=== PATIENT | male | born 1960 | race Caucasian/White ===

== ENCOUNTER → 2016-05-12 | Outpatient (CLI) | payer OTHER ==
[~2016-05-12] MED LIST: CELE-19 PO; COUM2.5T11 PO; LYRI75CA PO; MILKSUS PO; PERC10TA17 PO; SENO8.6T10 PO; SIMV20TA2 PO; TRIA37.53 PO; TYLE167L PO
== END ==
LOC: M RAD 13:55
PROVIDERS: ATTEND Physician Assistant
DX: M75.41 Impingement syndrome of right shoulder (principal); M75.42 Impingement syndrome of left shoulder; Z53.9 Procedure and treatment not carried out, unspecified reason

== ENCOUNTER → 2016-05-18 | Outpatient (CLI) | payer OTHER ==
--- NOTE | 2016-05-18 15:46 | REP ---
MRI study of the left shoulder without contrast: History: Left shoulder impingement. Technique: Axial, oblique coronal, and oblique sagittal imaging planes utilized for T1 and T2-weighted scans obtained in the usual fashion with and without fat saturation. MRI left shoulder findings: There is a small left glenohumeral joint effusion. Glenohumeral and acromioclavicular joints are normally aligned. There is AC joint osteoarthritic hypertrophy superiorly and inferiorly. There is diffuse tendonitis tendinosis change in the distal supraspinatus tendon. There is some focal increased signal intensity on oblique coronal T2-weighted scans near its distal insertion consistent with a partial thickness distal supraspinatus tear. There is mild early spur formation at the inferior aspect of the humeral head. There is no visible superior, anterior or posterior labral tear. No articular cartilage defect is seen. The biceps tendon is in the bony bicipital groove and appears intact. Infraspinatus and subscapularis tendons appear intact. Impression: Supraspinatus tendonitis tendinosis change with partial thickness distal supraspinatus tendon tear. Small glenohumeral joint effusion. Early osteoarthritic spurring of the humeral head. Moderate AC joint osteoarthritic hypertrophy. Signed by Rene Cain MD 05/18/2016 05:40 P
--- NOTE | 2016-05-18 15:49 | REP ---
MRI right shoulder without contrast: History: Right shoulder impingement pain. No comparison radiographs. Technique: Axial, oblique coronal, and oblique sagittal imaging planes are utilized for T1 and T2-weighted scans obtained in the usual fashion with and without fat saturation. MRI findings: The glenohumeral and acromioclavicular joints are normally aligned. There is moderate osteoarthritic hypertrophy at the superior and inferior aspect of the AC joint. There is a small to moderate right glenohumeral articulation effusion. No loose body is seen. No anterior or posterior labral tear is seen. No definite SLAP lesion is seen. There is fairly advanced diffuse tendonitis tendinosis change with swelling and increased signal intensity throughout the supraspinatus tendon on oblique coronal T1-weighted scans. There is focal T2-weighted signal intensity at the distal insertion of the tendon consistent with a partial thickness distal supraspinatus cuff tear on T2-weighted scans. No retraction is seen. The infraspinatus, subscapularis, and biceps tendons are intact. Exam is otherwise unremarkable. Impression: Supraspinatus tendonitis tendinosis change. Distal supraspinatus tendon focal T2 hyperintensity at its insertion consistent with partial thickness tear. Joint effusion in the glenohumeral articulation. Signed by Rene Cain MD 05/18/2016 05:41 P
== END ==
LOC: M RAD 12:50
PROVIDERS: ATTEND Physician Assistant
DX: M75.41 Impingement syndrome of right shoulder (principal); M75.42 Impingement syndrome of left shoulder

== ENCOUNTER 2016-06-05 23:12 | Emergency (ER) | payer OTHER ==
[2016-06-06 00:57] LABS: MEAN CORPUSCULAR HEMOGLOBIN 27.2 pg (27.0-33.0); MEAN CORPUSCULAR HGB CONC 33.6 g/dl (32.0-36.5); PLATELET COUNT, AUTOMATED 338 k/mm3 (150-450); RED CELL DISTRIBUTION WIDTH 14.5 % (11.5-14.5); WHITE BLOOD COUNT 12.5 K/mm3 (4.0-10.0)
[2016-06-06 01:52] LABS: ANISOCYTOSIS 1+; ERYTHROCYTE SEDIMENTATION RATE 6 mm/hr (0-20)
[2016-06-06] MEDS ORDERED: CLINDAMYCIN 150 MG CAP As Ordered ONE (01:53)
--- NOTE | 2016-06-06 02:07 | EDDOCDS ---
Physician Documentation [facility] Name: Ubaldo Ascencio Age: 56 yrs Sex: Male : 1960 Arrival Date: 06/05/2016 Time: 23:12 Bed I5 / M5 Private MD: Raj Mckenna Abdul Disposition: 06/06/16 01:48 Discharged to Home/Self Care. Impression: Cellulitis of right upper limb - vs localized allergic reaction to shoulder injection, right shoulder. - Condition is Stable. - Discharge Instructions: Cellulitis. - Prescriptions for Clindamycin HCl 300 mg Oral Capsule - take 1 capsule by ORAL route every 6 hours; 40 capsule. Prednisone 20 mg Oral Tablet - take 3 tablet by ORAL route once daily for 5 days; 15 tablet. - Medication Reconciliation, Local Pharmacy Hours form. - Follow up: Emergency Department; When: As needed; Reason: Worsening of conditions. Follow up: Private Physician; When: 2 - 3 days; Reason: Wound/Symptom Recheck, Recheck today's complaints, Continuance of care. - Problem is new. - Symptoms are unchanged. - Notes: TAKE ALL THE MEDICATION PRESCRIBED TO YOU TODAY DIRECTED UNTIL IT IS GONE. TAKE THE PREDNISONE EARLIER IN THE DAY, WITH FOOD. IF YOU TAKE THIS BEFORE BED, YOU MAY NOT SLEEP WELL. FOLLOW UP WITH THE ORTHO GROUP THAT PERFORMED THIS INJECTION. PLEASE RETURN TO THE ER WITH ANY WORSENING SYMPTOMS. Historical: - Allergies: no known allergies; - Home Meds: 1. simvastatin 20 mg Oral tab 1 tab once daily (Last dose: 06/05/2016 22:00) 2. gabapentin 100 mg Oral tab three times a day (Last dose: 06/05/2016 15:45) 3. Triamterene-Hydrochlorothiazid Oral Unknown once daily - PMHx: Hypercholesterolemia; Hypertension; Chronic Back pain; - PSHx: Colonoscopy; right hip replacement; right heel surgery; 2 hernia repairs; - Social history: Smoking status: Patient states was never smoker of tobacco. No barriers to communication noted, The patient speaks fluent Romanian. - Family history: Not pertinent. - : The pt / caregiver states he / she is not on anticoagulants. Home medication list is obtained from the patient. - Exposure Risk Screening:: None identified. Vital Signs: 06/05 23:15 BP 169 / 87 RA Sitting (auto/lg); Pulse 66; Resp 16; Temp 96.6(O); Pulse Ox 96% on R/A; rs6 Weight 133.81 kg / 295 lbs (R); Height 5 ft. 11 in. (180.34 cm) (R); Pain 3/10; 02/ 02:04 BP 158 / 83; Pulse 69; Resp 20; Temp 97.3(T); Pulse Ox 95% on R/A; Pain 0/10; rw1 02 23:15 Body Mass Index 41.14 (133.81 kg, 180.34 cm) rs6 02:04 states "pain is a zero as long as i'm not moving that shoulder" rw1 MDM: 00:13 CBC with Diff Ordered. EDMS 00:13 Sed Rate Ordered. EDMS 00:13 CRP Ordered. EDMS 00:59 DIFFERENTIAL NO CHARGE Ordered. EDMS 01:43 Financial registration complete. [facility] 01:48 Clindamycin 300 mg PO once ordered. dt4 Administered Medications: 02:03 Drug: Clindamycin 300 mg [clindamycin 150 mg capsule (2 caps)] Route: PO; rw1 02:03 Follow up: Response: Pt left department before re-evaluation is appropriate rw1 Signatures: Dispatcher [employer] Alma Rosa Kebede, Lawson Flores RN, mcp, LPN SOFTWARE CLERK rw1 Angelica Davis,ALEJANDRO RN ld5 Camelia Feliz, PAYoung PA-C dt4 Yessica Maldonado [facility] MTDD
--- NOTE | 2016-06-06 02:07 | EDDOCDS ---
Nurse's Notes [facility] Name: Ubaldo Ascencio Age: 56 yrs Sex: Male : 1960 Arrival Date: 06/05/2016 Time: 23:12 Bed I5 / M5 Private MD: Raj Mckenna Abdul Diagnosis: Cellulitis of right upper limb-vs localized allergic reaction to shoulder injection, right shoulder Presentation: 06/05 23:17 Presenting complaint: Patient states: had injection in right shoulder. Last mcp night shoulder started throbbing--took long time to fall asleep. Tonight shoulder felt hot, felt chills. Adult Sepsis Screening: The patient does not have new or worsening altered mentation. Patient's respiratory rate is less than 22. Systolic blood pressure is greater than 100. Patient has a qSOFA score of 0- Negative Sepsis Screen. Suicide/Homicide risk assessment- the patient denies having any suicidal and/or homicidal ideations and does not present with any other emotional, behavioral or mental health complaints. Status: Patient is not a service team leader or dependent. Transition of care: patient was not received from another setting of care. 23:17 Acuity: CAREY Level 4 [facility] 23:17 Method Of Arrival: Walkin/Carried/Asstd [facility] Triage Assessment: 23:22 General: Appears uncomfortable, Behavior is cooperative. Pain: Location: right shoulder mcp Pain currently is 2 out of 10 on a pain scale. At worst was 5 out of 10 on a pain scale. HIV screening NA for this visit Offered previously. Neurological: No deficits noted. Respiratory: Airway is patent Respiratory effort is even, unlabored. Derm: Skin is pink, warm & dry. Musculoskeletal: Circulation, motion, and sensation intact Range of motion limited in right shoulder. Historical: - Allergies: no known allergies; - Home Meds: 1. simvastatin 20 mg Oral tab 1 tab once daily (Last dose: 06/05/2016 22:00) 2. gabapentin 100 mg Oral tab three times a day (Last dose: 06/05/2016 15:45) 3. Triamterene-Hydrochlorothiazid Oral Unknown once daily - PMHx: Hypercholesterolemia; Hypertension; Chronic Back pain; - PSHx: Colonoscopy; right hip replacement; right heel surgery; 2 hernia repairs; - Social history: Smoking status: Patient states was never smoker of tobacco. No barriers to communication noted, The patient speaks fluent Polish. - Family history: Not pertinent. - : The pt / caregiver states he / she is not on anticoagulants. Home medication list is obtained from the patient. - Exposure Risk Screening:: None identified. Screenin 00:53 Screening information is obtained from the patient. Fall risk: No risks identified. ld5 Assistance ADL's: requires no assistance with activities of daily living. Abuse/DV Screen: The patient / caregiver reports he/she is: not in a situation that causes fear, pain or injury. Nutritional screening: No deficits noted. Advance Directives: There is no active DNR order. home support is adequate. Assessment: 00:53 General: Appears in no apparent distress. Pain: Pain currently is 2 out of 10 on a pain ld5 scale. Neurological: Level of Consciousness is awake, alert. Respiratory: Airway is patent Respiratory effort is even, unlabored. Musculoskeletal: Reports pain in right shoulder. 02:04 Reassessment: Patient appears in no apparent distress at this time. Patient denies pain rw1 at this time. Patient states feeling better. Vital Signs: 06/05 23:15 BP 169 / 87 RA Sitting (auto/lg); Pulse 66; Resp 16; Temp 96.6(O); Pulse Ox 96% on R/A; rs6 Weight 133.81 kg (R); Height 5 ft. 11 in. (180.34 cm) (R); Pain 3/10; /04 02:04 BP 158 / 83; Pulse 69; Resp 20; Temp 97.3(T); Pulse Ox 95% on R/A; Pain 0/10; rw1 /03 23:15 Body Mass Index 41.14 (133.81 kg, 180.34 cm) rs6 02:04 states "pain is a zero as long as i'm not moving that shoulder" rw1 Vitals: 06/05 23:15 Log In Time: June 05, 2016 at 23:15. rs6 ED Course: 23:14 Patient visited by Salena Crespo PCA. rs6 23:14 Raj Mckenna is Private Physician. rs6 23:14 Patient moved to Waiting rs6 23:16 Patient visited by Salena Crespo PCA. rs6 23:16 Patient moved to Pre RCE rs6 23:18 Triage Initiated mcp 23:23 Patient visited by Alma Rosa Conteh, ALEJANDRO. mcp 23:47 Patient moved to Triage 1 cz 0204 00:03 Camelia Feliz PA-C is [facility]. dt4 00:03 Marcio Blanco DO is Attending Physician. dt4 00:03 Patient visited by Camelia Feliz PA-C. dt4 00:12 Patient moved to I5 / cz 00:19 CRP Sent. cz 00:19 Sed Rate Sent. cz 00:19 CBC with Diff Sent. cz 00:52 Patient visited by Angelica Davis RN. ld5 00:53 The patient / caregiver is instructed regarding the plan of care and ED course. Patient ld5 has correct armband on for positive identification. 00:53 No IV's were initiated during this patient's visit. No procedures done that require ld5 assistance. 01:17 DIFFERENTIAL NO CHARGE Sent. ld5 Administered Medications: 02:03 Drug: Clindamycin 300 mg [clindamycin 150 mg capsule (2 caps)] Route: PO; rw1 02:03 Follow up: Response: Pt left department before re-evaluation is appropriate rw1 Order Results: Lab Order: CBC with Diff; SPEC'M 06/06/16 00:14 Test: WHITE BLOOD COUNT; Value: 12.5; Range: 4.0-10.0; Abnormal: Above high normal; Units: K/mm3; Status: F Test: RED BLOOD COUNT; Value: 5.60; Range: 4.30-6.10; Units: M/mm3; Status: F Test: HEMOGLOBIN; Value: 15.2; Range: 14.0-18.0; Units: g/dl; Status: F Test: HEMATOCRIT; Value: 45.3; Range: 42.0-52.0; Units: %; Status: F Test: MEAN CORPUSCULAR VOLUME; Value: 81.0; Range: 80.0-96.0; Units: fl; Status: F Test: MEAN CORPUSCULAR HEMOGLOBIN; Value: 27.2; Range: 27.0-33.0; Units: pg; Status: F Test: MEAN CORPUSCULAR HGB CONC; Value: 33.6; Range: 32.0-36.5; Units: g/dl; Status: F Test: RED CELL DISTRIBUTION WIDTH; Value: 14.5; Range: 11.5-14.5; Units: %; Status: F Test: PLATELET COUNT, AUTOMATED; Value: 338; Range: 150-450; Units: k/mm3; Status: F Test: NEUTROPHILS; Value: 80; Range: 35-75; Abnormal: Above high normal; Units: %; Status: F Test: LYMPHOCYTES; Value: 14; Range: 16-52; Abnormal: Below low normal; Units: %; Status: F Test: MONOCYTES; Value: 5; Range: 0-8; Units: %; Status: F Test: ATYPICAL LYMPH; Value: 1; Range: 0-5; Units: %; Status: F Test: ANISOCYTOSIS; Value: 1+; Status: F Lab Order: Sed Rate; SPEC'06/06/16 00:14 Test: ERYTHROCYTE SEDIMENTATION RATE; Value: 6; Range: 0-20; Units: mm/hr; Status: F Lab Order: CRP; SPEC'06/06/16 00:14 Test: C REACTIVE PROTEIN QUANTITATIV; Value: 0.83; Range: 0.00-0.30; Abnormal: Above high normal; Units: MG/DL; Status: F Lab Order: PLATELET ESTIMATE; SPEC'06/06/16 00:14 Test: PLATELET ESTIMATE; Value: NORMAL; Range: NORMAL; Status: F Outcome: 01:48 Discharge ordered by Provider. dt4 02:04 Discharge Assessment: Patient awake, alert and oriented x 3. No cognitive and/or rw1 functional deficits noted. Patient verbalized understanding of disposition instructions. patient administered narcotics - no. The following High Risk Discharge criteria are identified: None. Discharged to home ambulatory. Condition: stable Condition: improved. Discharge instructions given to patient, Instructed on discharge instructions, follow up and referral plans. medication usage, Demonstrated understanding of instructions, medications, Pt was receptive of discharge instructions/ teaching. Prescriptions given X 2. No special radiology studies were completed. Property sent home with patient. 02:06 Patient left the ED. rw1 Signatures: Alma Rosa Conteh RN Paramjit Dobson mcp, RN RN cz Workman, Robert, LPN LPN rw1 Angelica Davis RN RN ld5 Camelia Feliz, PAYoung PA-C dt4 Crespo, Salena, SOCIAL SERVICE WORKER SOCIAL SERVICE WORKER rs6 MTDD
--- NOTE | 2016-06-08 03:08 | EDDOCDS ---
Physician Documentation [facility] Name: Ubaldo Ascencio Age: 56 yrs Sex: Male : 1960 Arrival Date: 06/05/2016 Time: 23:12 Bed I5 / M5 Private MD: Raj Mckenna Abdul Disposition: 06/06/16 01:48 Discharged to Home/Self Care. Impression: Cellulitis of right upper limb - vs localized allergic reaction to shoulder injection, right shoulder. - Condition is Stable. - Discharge Instructions: Cellulitis. - Prescriptions for Clindamycin HCl 300 mg Oral Capsule - take 1 capsule by ORAL route every 6 hours; 40 capsule. Prednisone 20 mg Oral Tablet - take 3 tablet by ORAL route once daily for 5 days; 15 tablet. - Medication Reconciliation, Local Pharmacy Hours form. - Follow up: Emergency Department; When: As needed; Reason: Worsening of conditions. Follow up: Private Physician; When: 2 - 3 days; Reason: Wound/Symptom Recheck, Recheck today's complaints, Continuance of care. - Problem is new. - Symptoms are unchanged. - Notes: TAKE ALL THE MEDICATION PRESCRIBED TO YOU TODAY DIRECTED UNTIL IT IS GONE. TAKE THE PREDNISONE EARLIER IN THE DAY, WITH FOOD. IF YOU TAKE THIS BEFORE BED, YOU MAY NOT SLEEP WELL. FOLLOW UP WITH THE ORTHO GROUP THAT PERFORMED THIS INJECTION. PLEASE RETURN TO THE ER WITH ANY WORSENING SYMPTOMS. Historical: - Allergies: no known allergies; - Home Meds: 1. simvastatin 20 mg Oral tab 1 tab once daily (Last dose: 06/05/2016 22:00) 2. gabapentin 100 mg Oral tab three times a day (Last dose: 06/05/2016 15:45) 3. Triamterene-Hydrochlorothiazid Oral Unknown once daily - PMHx: Hypercholesterolemia; Hypertension; Chronic Back pain; - PSHx: Colonoscopy; right hip replacement; right heel surgery; 2 hernia repairs; - Social history: Smoking status: Patient states was never smoker of tobacco. No barriers to communication noted, The patient speaks fluent [place]ib[place]ian. - Family history: Not pertinent. - : The pt / caregiver states he / she is not on anticoagulants. Home medication list is obtained from the patient. - Exposure Risk Screening:: None identified. Vital Signs: 06/05 23:15 BP 169 / 87 RA Sitting (auto/lg); Pulse 66; Resp 16; Temp 96.6(O); Pulse Ox 96% on R/A; rs6 Weight 133.81 kg / 295 lbs (R); Height 5 ft. 11 in. (180.34 cm) (R); Pain 3/10; 02/04 02:04 BP 158 / 83; Pulse 69; Resp 20; Temp 97.3(T); Pulse Ox 95% on R/A; Pain 0/10; rw1 02 23:15 Body Mass Index 41.14 (133.81 kg, 180.34 cm) rs6 02:04 states "pain is a zero as long as i'm not moving that shoulder" rw1 MDM: 00:13 CBC with Diff Ordered. EDMS 00:13 Sed Rate Ordered. EDMS 00:13 CRP Ordered. EDMS 00:59 DIFFERENTIAL NO CHARGE Ordered. EDMS 01:43 Financial registration complete. [facility] 01:48 Clindamycin 300 mg PO once ordered. dt4 18:30 T-Sheet-- Draft Copy was scanned into [employer] and attached to record. klr Administered Medications: 02:03 Drug: Clindamycin 300 mg [clindamycin 150 mg capsule (2 caps)] Route: PO; rw1 02:03 Follow up: Response: Pt left department before re-evaluation is appropriate rw1 Signatures: Dispatcher [employer] Alma Rosa Kebede, RN RN Lawson Cartagena LPN TYPEWRITER OPERATOR AUTOMATIC rw1 Angelica DavisRN RN ld5 Camelia Feliz PA-C PA-C dt4 Yessica Maldonado [facility] Maryann Martin henry The chart was reviewed and I authenticate all verbal orders and agree with the evaluation and treatment provided.Attachments: 18:30 T-Sheet-- Draft Copy klr Chart Complete MTDD
--- NOTE | 2016-06-08 03:08 | EDDOCDS ---
Physician Documentation [facility] Name: Ubaldo Ascencio Age: 56 yrs Sex: Male : 1960 Arrival Date: 06/05/2016 Time: 23:12 Bed I5 / M5 Private MD: Raj Mckenna Abdul Disposition: 06/06/16 01:48 Discharged to Home/Self Care. Impression: Cellulitis of right upper limb - vs localized allergic reaction to shoulder injection, right shoulder. - Condition is Stable. - Discharge Instructions: Cellulitis. - Prescriptions for Clindamycin HCl 300 mg Oral Capsule - take 1 capsule by ORAL route every 6 hours; 40 capsule. Prednisone 20 mg Oral Tablet - take 3 tablet by ORAL route once daily for 5 days; 15 tablet. - Medication Reconciliation, Local Pharmacy Hours form. - Follow up: Emergency Department; When: As needed; Reason: Worsening of conditions. Follow up: Private Physician; When: 2 - 3 days; Reason: Wound/Symptom Recheck, Recheck today's complaints, Continuance of care. - Problem is new. - Symptoms are unchanged. - Notes: TAKE ALL THE MEDICATION PRESCRIBED TO YOU TODAY DIRECTED UNTIL IT IS GONE. TAKE THE PREDNISONE EARLIER IN THE DAY, WITH FOOD. IF YOU TAKE THIS BEFORE BED, YOU MAY NOT SLEEP WELL. FOLLOW UP WITH THE ORTHO GROUP THAT PERFORMED THIS INJECTION. PLEASE RETURN TO THE ER WITH ANY WORSENING SYMPTOMS. Historical: - Allergies: no known allergies; - Home Meds: 1. simvastatin 20 mg Oral tab 1 tab once daily (Last dose: 06/05/2016 22:00) 2. gabapentin 100 mg Oral tab three times a day (Last dose: 06/05/2016 15:45) 3. Triamterene-Hydrochlorothiazid Oral Unknown once daily - PMHx: Hypercholesterolemia; Hypertension; Chronic Back pain; - PSHx: Colonoscopy; right hip replacement; right heel surgery; 2 hernia repairs; - Social history: Smoking status: Patient states was never smoker of tobacco. No barriers to communication noted, The patient speaks fluent [place]. - Family history: Not pertinent. - : The pt / caregiver states he / she is not on anticoagulants. Home medication list is obtained from the patient. - Exposure Risk Screening:: None identified. Vital Signs: 06/05 23:15 BP 169 / 87 RA Sitting (auto/lg); Pulse 66; Resp 16; Temp 96.6(O); Pulse Ox 96% on R/A; rs6 Weight 133.81 kg / 295 lbs (R); Height 5 ft. 11 in. (180.34 cm) (R); Pain 3/10; 02/04 02:04 BP 158 / 83; Pulse 69; Resp 20; Temp 97.3(T); Pulse Ox 95% on R/A; Pain 0/10; rw1 02 23:15 Body Mass Index 41.14 (133.81 kg, 180.34 cm) rs6 02:04 states "pain is a zero as long as i'm not moving that shoulder" rw1 MDM: 00:13 CBC with Diff Ordered. EDMS 00:13 Sed Rate Ordered. EDMS 00:13 CRP Ordered. EDMS 00:59 DIFFERENTIAL NO CHARGE Ordered. EDMS 01:43 Financial registration complete. [facility] 01:48 Clindamycin 300 mg PO once ordered. dt4 18:30 T-Sheet-- Draft Copy was scanned into [employer] and attached to record. klr Administered Medications: 02:03 Drug: Clindamycin 300 mg [clindamycin 150 mg capsule (2 caps)] Route: PO; rw1 02:03 Follow up: Response: Pt left department before re-evaluation is appropriate rw1 Signatures: Dispatcher [employer] Alma Rosa Kebede, RN RN Lawson Cartagena LPN BRIDAL SALES CONSULTANT rw1 Angelica DavisRN RN ld5 Camelia Feliz PA-C PA-C dt4 Yessica Maldonado [facility] Maryann Martin henry The chart was reviewed and I authenticate all verbal orders and agree with the evaluation and treatment provided.Attachments: 18:30 T-Sheet-- Draft Copy klr Chart Complete MTDD
--- NOTE | 2016-06-08 03:08 | EDDOCDS ---
Nurse's Notes [facility] Name: Ubaldo Ascencio Age: 56 yrs Sex: Male : 1960 Arrival Date: 06/05/2016 Time: 23:12 Bed I5 / M5 Private MD: Raj Mckenna Abdul Diagnosis: Cellulitis of right upper limb-vs localized allergic reaction to shoulder injection, right shoulder Presentation: 06/05 23:17 Presenting complaint: Patient states: had injection in right shoulder. Last mcp night shoulder started throbbing--took long time to fall asleep. Tonight shoulder felt hot, felt chills. Adult Sepsis Screening: The patient does not have new or worsening altered mentation. Patient's respiratory rate is less than 22. Systolic blood pressure is greater than 100. Patient has a qSOFA score of 0- Negative Sepsis Screen. Suicide/Homicide risk assessment- the patient denies having any suicidal and/or homicidal ideations and does not present with any other emotional, behavioral or mental health complaints. Status: Patient is not a patient services technician or dependent. Transition of care: patient was not received from another setting of care. 23:17 Acuity: CAREY Level 4 [facility] 23:17 Method Of Arrival: Walkin/Carried/Asstd [facility] Triage Assessment: 23:22 General: Appears uncomfortable, Behavior is cooperative. Pain: Location: right shoulder mcp Pain currently is 2 out of 10 on a pain scale. At worst was 5 out of 10 on a pain scale. HIV screening NA for this visit Offered previously. Neurological: No deficits noted. Respiratory: Airway is patent Respiratory effort is even, unlabored. Derm: Skin is pink, warm & dry. Musculoskeletal: Circulation, motion, and sensation intact Range of motion limited in right shoulder. Historical: - Allergies: no known allergies; - Home Meds: 1. simvastatin 20 mg Oral tab 1 tab once daily (Last dose: 06/05/2016 22:00) 2. gabapentin 100 mg Oral tab three times a day (Last dose: 06/05/2016 15:45) 3. Triamterene-Hydrochlorothiazid Oral Unknown once daily - PMHx: Hypercholesterolemia; Hypertension; Chronic Back pain; - PSHx: Colonoscopy; right hip replacement; right heel surgery; 2 hernia repairs; - Social history: Smoking status: Patient states was never smoker of tobacco. No barriers to communication noted, The patient speaks fluent Wolof. - Family history: Not pertinent. - : The pt / caregiver states he / she is not on anticoagulants. Home medication list is obtained from the patient. - Exposure Risk Screening:: None identified. Screenin 00:53 Screening information is obtained from the patient. Fall risk: No risks identified. ld5 Assistance ADL's: requires no assistance with activities of daily living. Abuse/DV Screen: The patient / caregiver reports he/she is: not in a situation that causes fear, pain or injury. Nutritional screening: No deficits noted. Advance Directives: There is no active DNR order. home support is adequate. Assessment: 00:53 General: Appears in no apparent distress. Pain: Pain currently is 2 out of 10 on a pain ld5 scale. Neurological: Level of Consciousness is awake, alert. Respiratory: Airway is patent Respiratory effort is even, unlabored. Musculoskeletal: Reports pain in right shoulder. 02:04 Reassessment: Patient appears in no apparent distress at this time. Patient denies pain rw1 at this time. Patient states feeling better. Vital Signs: 06/05 23:15 BP 169 / 87 RA Sitting (auto/lg); Pulse 66; Resp 16; Temp 96.6(O); Pulse Ox 96% on R/A; rs6 Weight 133.81 kg (R); Height 5 ft. 11 in. (180.34 cm) (R); Pain 3/10; /04 02:04 BP 158 / 83; Pulse 69; Resp 20; Temp 97.3(T); Pulse Ox 95% on R/A; Pain 0/10; rw1 /03 23:15 Body Mass Index 41.14 (133.81 kg, 180.34 cm) rs6 02:04 states "pain is a zero as long as i'm not moving that shoulder" rw1 Vitals: 06/05 23:15 Log In Time: June 05, 2016 at 23:15. rs6 ED Course: 23:14 Patient visited by Salena Crespo PCA. rs6 23:14 Raj Mckenna is Private Physician. rs6 23:14 Patient moved to Waiting rs6 23:16 Patient visited by Salena Crespo PCA. rs6 23:16 Patient moved to Pre RCE rs6 23:18 Triage Initiated mcp 23:23 Patient visited by Alma Rosa Conteh, ALEJANDRO. mcp 23:47 Patient moved to Triage 1 cz 0204 00:03 Camelia Feliz PA-C is PHCP. dt4 00:03 Marcio Blanco DO is Attending Physician. dt4 00:03 Patient visited by Camelia Feliz PA-C. dt4 00:12 Patient moved to I5 / cz 00:19 CRP Sent. cz 00:19 Sed Rate Sent. cz 00:19 CBC with Diff Sent. cz 00:52 Patient visited by Angelica Davis RN. ld5 00:53 The patient / caregiver is instructed regarding the plan of care and ED course. Patient ld5 has correct armband on for positive identification. 00:53 No IV's were initiated during this patient's visit. No procedures done that require ld5 assistance. 01:17 DIFFERENTIAL NO CHARGE Sent. ld5 18:30 T-Sheet-- Draft Copy was scanned into [employer] and attached to record. klr Administered Medications: 02:03 Drug: Clindamycin 300 mg [clindamycin 150 mg capsule (2 caps)] Route: PO; rw1 02:03 Follow up: Response: Pt left department before re-evaluation is appropriate rw1 Order Results: Lab Order: CBC with Diff; SPEC'M 06/06/16 00:14 Test: WHITE BLOOD COUNT; Value: 12.5; Range: 4.0-10.0; Abnormal: Above high normal; Units: K/mm3; Status: F Test: RED BLOOD COUNT; Value: 5.60; Range: 4.30-6.10; Units: M/mm3; Status: F Test: HEMOGLOBIN; Value: 15.2; Range: 14.0-18.0; Units: g/dl; Status: F Test: HEMATOCRIT; Value: 45.3; Range: 42.0-52.0; Units: %; Status: F Test: MEAN CORPUSCULAR VOLUME; Value: 81.0; Range: 80.0-96.0; Units: fl; Status: F Test: MEAN CORPUSCULAR HEMOGLOBIN; Value: 27.2; Range: 27.0-33.0; Units: pg; Status: F Test: MEAN CORPUSCULAR HGB CONC; Value: 33.6; Range: 32.0-36.5; Units: g/dl; Status: F Test: RED CELL DISTRIBUTION WIDTH; Value: 14.5; Range: 11.5-14.5; Units: %; Status: F Test: PLATELET COUNT, AUTOMATED; Value: 338; Range: 150-450; Units: k/mm3; Status: F Test: NEUTROPHILS; Value: 80; Range: 35-75; Abnormal: Above high normal; Units: %; Status: F Test: LYMPHOCYTES; Value: 14; Range: 16-52; Abnormal: Below low normal; Units: %; Status: F Test: MONOCYTES; Value: 5; Range: 0-8; Units: %; Status: F Test: ATYPICAL LYMPH; Value: 1; Range: 0-5; Units: %; Status: F Test: ANISOCYTOSIS; Value: 1+; Status: F Lab Order: Sed Rate; SPEC'M 06/06/16 00:14 Test: ERYTHROCYTE SEDIMENTATION RATE; Value: 6; Range: 0-20; Units: mm/hr; Status: F Lab Order: CRP; SPEC'M 06/06/16 00:14 Test: C REACTIVE PROTEIN QUANTITATIV; Value: 0.83; Range: 0.00-0.30; Abnormal: Above high normal; Units: MG/DL; Status: F Lab Order: PLATELET ESTIMATE; SPEC'M 06/06/16 00:14 Test: PLATELET ESTIMATE; Value: NORMAL; Range: NORMAL; Status: F Outcome: 01:48 Discharge ordered by Provider. dt4 02:04 Discharge Assessment: Patient awake, alert and oriented x 3. No cognitive and/or rw1 functional deficits noted. Patient verbalized understanding of disposition instructions. patient administered narcotics - no. The following High Risk Discharge criteria are identified: None. Discharged to home ambulatory. Condition: stable Condition: improved. Discharge instructions given to patient, Instructed on discharge instructions, follow up and referral plans. medication usage, Demonstrated understanding of instructions, medications, Pt was receptive of discharge instructions/ teaching. Prescriptions given X 2. No special radiology studies were completed. Property sent home with patient. 02:06 Patient left the ED. rw1 Signatures: Alma Rosa Conteh RN RN mcp Zecher, Calvin, RN RN cz Workman, Robert, LPN LPN rw1 Angelica Davis RN RN ld5 Camelia Feliz, PA-C PA-C dt4 Salena Crespo, LADLER LADLER rs6 Maryann Martin Chart Complete MTDD
== END 2016-06-06 02:06 | disposition home or self-care (01) ==
LOC: M ED 23:12
DX: M25.511 Pain in right shoulder (principal); I10 Essential (primary) hypertension; E78.00 Pure hypercholesterolemia, unspecified; Z79.899 Other long term (current) drug therapy

== ENCOUNTER 2016-12-25 14:29 | Emergency (ER) | payer OTHER ==
[~2016-12-25] VITALS: Ht 177.8 cm; Wt 129.5 kg
[~2016-12-25 14:29] MED LIST changes: -CELE-19 PO; +CELE1CAP4 PO; -COUM2.5T11 PO; +COUM2.5T17 PO; -PERC10TA17 PO; +PERC10TA26 PO
--- NOTE | 2016-12-25 16:47 | REP ---
Left ankle: Four views. History: Swelling. Findings: Four views of the left ankle demonstrate anterolateral soft-tissue swelling and diffuse midfoot and forefoot swelling. Ankle mortise is intact. There is mild articular spurring of the distal tibia. No fracture is seen. There is Achilles calcaneal spurring. Impression: Diffuse swelling. No fracture seen. Distal tibial spurring and Achilles heel spurring. Signed by Rene Cain MD 12/25/2016 05:02 P
[2016-12-25] MEDS ORDERED: IBUP-1022 PO (16:49)
[2016-12-25 17:05] VITALS: BP 132/71
== END 2016-12-25 17:07 | disposition home or self-care (01) ==
LOC: M ED 14:29
DX: S93.402A Sprain of unspecified ligament of left ankle, initial encounter (principal); X50.1XXA Overexertion from prolonged static or awkward postures, initial encounter; Y92.9 Unspecified place or not applicable; Y93.9 Activity, unspecified; Y99.9 Unspecified external cause status; M65.272 Calcific tendinitis, left ankle and foot; M25.70 Osteophyte, unspecified joint; I10 Essential (primary) hypertension; Z79.899 Other long term (current) drug therapy

== ENCOUNTER → 2017-03-31 | Outpatient (CLI) | payer OTHER ==
[~2017-03-31] MED LIST changes: +GABA-279 PO; +IBUP-1022 PO; +MULT1TAB10 PO; +calcium PO
[2017-03-31 09:37] LABS: MEAN CORPUSCULAR HGB CONC 33.5 g/dl (32.0-36.5); MEAN CORPUSCULAR VOLUME 80.7 fl (80.0-96.0); PLATELET COUNT, AUTOMATED 266 10^3/uL (150-450); RED CELL DISTRIBUTION WIDTH 15.1 % (11.5-14.5); WHITE BLOOD COUNT 5.7 10^3/uL (4.0-10.0)
--- NOTE | 2017-03-31 09:43 | REP ---
Clinical: Hypertension. Comparison: 01/10/2015. Technique: PA and lateral. Findings: The mediastinum and cardiac silhouette are normal. The lung hsu are clear and without acute consolidation, effusion, or pneumothorax. The skeletal structures are intact and normal. Impression: 1. No acute cardiopulmonary process. Signed by Cholo Caraballo MD 03/31/2017 09:34 A
[2017-03-31 09:49] LABS: INR 0.96
[2017-03-31 10:08] LABS: ALBUMIN 3.6 GM/DL (3.2-5.2); ALBUMIN/GLOBULIN RATIO 1.09 (1.00-1.93); ALKALINE PHOSPHATASE 72 U/L (45-117); ALT/SGPT 53 U/L (12-78); ANION GAP 8 MEQ/L (8-16); AST/SGOT 42 U/L (7-37); BILIRUBIN,TOTAL 1.3 MG/DL (0.2-1.0); BLOOD UREA NITROGEN 13 MG/DL (7-18); CALCIUM LEVEL 9.6 MG/DL (8.5-10.1); CARBON DIOXIDE LEVEL 32 MEQ/L (21-32); CHLORIDE LEVEL 101 MEQ/L (98-107); CHOLESTEROL LEVEL 214 MG/DL (<200); CREATININE FOR GFR 0.81 MG/DL (0.70-1.30); GLOMERULAR FILTRATION RATE > 60.0 (>56); GLUCOSE, FASTING 103 MG/DL (70-105); POTASSIUM SERUM 3.6 MEQ/L (3.5-5.1); SODIUM LEVEL 141 MEQ/L (136-145); TOTAL PROTEIN 6.9 GM/DL (6.4-8.2); TRIGLYCERIDES LEVEL 175 MG/DL (<150)
--- NOTE | 2017-03-31 13:21 | ECGEPIP ---
Stationary ECG Study [facility] Test Date: 2017-03-31 Pat Name: HA CONTRERAS Department: Room: - Gender: M Apple Picker: : [phone] Requested By: Raj Hua Order Number: [id number] Reading MD: Esme Casillas Measurements Intervals [place] Rate: 75 P: 30 UT: 217 QRS: 40 QRSD: 118 T: 35 QT: 403 QTc: 452 Interpretive Statements SINUS RHYTHM WITH FIRST DEGREE AV BLOCK WITH OCCASIONAL VENTRICULAR PREMATURE COMPLEXES COMPLEXES pvc new C/W 01/10/15 BORDERLINE VOLT PRECORDIAL LEADS Electronically Signed On 03-31-2017 13:20:51 EST by Esme Casillas
== END ==
LOC: M LAB 09:05
PROVIDERS: ATTEND Family Medicine
DX: I10 Essential (primary) hypertension (principal); R53.83 Other fatigue; N40.0 Benign prostatic hyperplasia without lower urinary tract symptoms

== ENCOUNTER 2017-04-13 09:33 | Day surgery (SDC) | payer OTHER ==
[~2017-04-13] VITALS: Ht 177.8 cm; Wt 130.2 kg
[~2017-04-13 09:33] MED LIST changes: +ACETAMINOPHEN 325 MG TAB PO PRN; +BSS with VANC/TOB/EPI for EYE CASES IR ONE; +CYCLOPENTOLATE 2% OPHTH SOLN 2ML BTL OS ONE; +LIDOCAINE 3.5 % 1ML OPHTH TOPICAL GEL OU ONE; +OFLOXACIN 0.3 % (OCUFLOX) OPTH SOL 5ML OS ONE; +PHENYLEPHRINE 2.5% OPHTH SOL 2ML OS ONE; +PHENYLEPHRINE HCL 10 % OPHTH. SOL 5ML OS PRN; +PROPARACAINE 0.5% OPHTH SOL 15ML OS PRN; +TROPICAMIDE 1% OPHTH SOLN 2ML OS ONE
[2017-04-13] MEDS ORDERED: TRIMETHOBENZAMIDE 300 MG CAP PO PRN (09:45)
[2017-04-13] MEDS ORDERED: AcetaZOLAMIDE 500 MG ER CAP PO ONE (09:45)
[2017-04-13] MEDS ORDERED: MOXIFLOXACIN IN BSS 0.25MG/0.25ML INTRACAMERAL INJ (OR EYE ONLY)(J2280) As Ordered ONE (12:30)
[2017-04-13] MEDS ORDERED: LIDOCAINE 1% SDV 5 ML VIAL As Ordered ONE (12:30)
[2017-04-13] MEDS ORDERED: POVIDONE-IODINE 5% OPHTH PREP SOL 30ML As Ordered ONE (12:30)
[2017-04-13] MEDS ORDERED: TRIAMCINOLONE PRES FR 40 MG/ML 1ML(TRIESENCE)(OR EYE ONLY)(J3300 PER 1MG) As Ordered ONE (12:30)
[2017-04-13] MEDS ORDERED: HEALON DUET (HEALON 10MG/ML 0.55ML & HEALON ENDOCOAT 30MG/ML 0.85ML) As Ordered ONE (12:31)
[2017-04-13] MEDS ORDERED: fentaNYL 100 MCG/2 ML INJECTION (J3010) As Ordered ONE (13:06)
[2017-04-13] MEDS ORDERED: MIDAZOLAM INJ 2 MG/2 ML VIAL (J2250) As Ordered ONE (13:06)
--- NOTE | 2017-04-13 13:30 | RO ---
DATE OF PROCEDURE: 04/13/2017 PREPROCEDURE DIAGNOSES: Cataract left eye, myosis and floppy iris left eye. POSTPROCEDURE DIAGNOSES: Cataract left eye, myosis and floppy iris left eye. PROCEDURE: Phacoemulsification with intraocular lens implantation along with placement of the Malyugin ring. Intraocular lens used was Hoya, power 23.5 Diopter. SURGEON: Van Lopez MD. COMPRESSION MOLDING MACHINE OPERATOR: None. ANESTHESIA: COMPLICATIONS: None. DESCRIPTION OF PROCEDURE: The patient was brought to the operating room and laid in supine position. The left eye was prepped and draped in a sterile fashion for opthalmic surgery and a lid speculum was placed. A sideport incision was made and EndoCoat was injected into the anterior chamber. Temporal clear corneal incision was then made with a 2.5 mm keratome and Malyugin ring 7 mm was inserted in the eye with the help of the introducer and hooks. Capsulorrhexis was then done followed by hydrodissection and phacoemulsification in divide and conquer method within the capsular bag. Excess viscoelastic was then aspirated. Healon was then placed in the capsular bag and intraocular lens inserted. Malyugin ring was then removed from the eye. Excess viscoelastic aspirated. Wound was hydrated. No leaks were noted. Subtenon injection of triamcinolone was given along with intracameral moxifloxacin. At the end of the case, lid speculum was removed. Patient returned to the recovery room in stable condition.
[2017-04-13 14:05] VITALS: BP 126/65
== END 2017-04-13 14:08 | disposition home or self-care (01) ==
LOC: M SDC 09:33
PROVIDERS: ATTEND Ophthalmology
DX: H26.9 Unspecified cataract (principal); H57.03 Miosis; H21.81 Floppy iris syndrome; I10 Essential (primary) hypertension; E78.00 Pure hypercholesterolemia, unspecified; M12.9 Arthropathy, unspecified; R06.83 Snoring; G47.30 Sleep apnea, unspecified; E66.01 Morbid (severe) obesity due to excess calories; Z79.899 Other long term (current) drug therapy; Z96.641 Presence of right artificial hip joint

== ENCOUNTER → 2017-06-03 | Outpatient (CLI) | payer OTHER ==
[2017-06-03 10:18] LABS: HEMATOCRIT 47.1 % (42.0-52.0); HEMOGLOBIN 15.7 g/dl (14.0-18.0); MEAN CORPUSCULAR HGB CONC 33.3 g/dl (32.0-36.5); MEAN CORPUSCULAR VOLUME 80.9 fl (80.0-96.0); PLATELET COUNT, AUTOMATED 221 10^3/uL (150-450); RED BLOOD COUNT 5.82 10^6/uL (4.30-6.10); RED CELL DISTRIBUTION WIDTH 14.7 % (11.5-14.5); WHITE BLOOD COUNT 5.6 10^3/uL (4.0-10.0)
[2017-06-03 10:41] LABS: ALBUMIN 3.9 GM/DL (3.2-5.2); ALKALINE PHOSPHATASE 70 U/L (45-117); ALT/SGPT 34 U/L (12-78); ANION GAP 8 MEQ/L (8-16); AST/SGOT 31 U/L (7-37); BILIRUBIN,TOTAL 1.9 MG/DL (0.2-1.0); BLOOD UREA NITROGEN 10 MG/DL (7-18); CALCIUM LEVEL 8.7 MG/DL (8.5-10.1); CARBON DIOXIDE LEVEL 30 MEQ/L (21-32); CHLORIDE LEVEL 104 MEQ/L (98-107); CHOLESTEROL LEVEL 177 MG/DL (<200); CHOLESTEROL RISK RATIO 3.051 (<5); CREATININE FOR GFR 0.86 MG/DL (0.70-1.30); GLOMERULAR FILTRATION RATE > 60.0 (>56); GLUCOSE, FASTING 95 MG/DL (70-100); HDL CHOLESTEROL 58 MG/DL (>40); LDL CHOLESTEROL 87.4 MG/DL (<100); NON-HDL-C 119 MG/DL; POTASSIUM SERUM 3.7 MEQ/L (3.5-5.1); SODIUM LEVEL 142 MEQ/L (136-145); TOTAL PROTEIN 6.9 GM/DL (6.4-8.2); TRIGLYCERIDES LEVEL 158 MG/DL (<150)
[2017-06-03 11:11] LABS: ESTIMATED AVERAGE GLUCOSE 111 MG/DL (60-110); HEMOGLOBIN A1c 5.5 %
== END ==
LOC: M RAD 09:10
DX: K76.0 Fatty (change of) liver, not elsewhere classified (principal); K83.9 Disease of biliary tract, unspecified
CPT/HCPCS: 76705

== ENCOUNTER 2017-06-16 12:35 | Outpatient (RCR) | payer OTHER | END 2017-06-30 | LOC: M PT 12:35 | DX: Z51.89 Encounter for other specified aftercare (principal); M47.892 Other spondylosis, cervical region | CPT/HCPCS: 97010 ==

== ENCOUNTER 2017-09-02 10:25 | Outpatient (RCR) | payer OTHER | END 2017-09-30 | disposition home or self-care (01) | LOC: M PT 09-13 12:54 | DX: Z51.89 Encounter for other specified aftercare (principal); G56.03 Carpal tunnel syndrome, bilateral upper limbs | CPT/HCPCS: 97110 ==

== ENCOUNTER → 2017-10-04 | Outpatient (CLI) | payer OTHER | LOC: M RAD 10:51 | DX: M79.672 Pain in left foot (principal) | CPT/HCPCS: 73718 ==

== ENCOUNTER → 2017-11-10 | Outpatient (CLI) | payer OTHER ==
[2017-11-10 10:29] LABS: ESTIMATED AVERAGE GLUCOSE 114 MG/DL (60-110); HEMOGLOBIN A1c 5.6 %
[2017-11-10 10:32] LABS: HEMATOCRIT 46.7 % (42.0-52.0); HEMOGLOBIN 15.7 g/dl (13.5-17.5); MEAN CORPUSCULAR HEMOGLOBIN 27.4 pg (27.0-33.0); MEAN CORPUSCULAR HGB CONC 33.6 g/dl (32.0-36.5); MEAN CORPUSCULAR VOLUME 81.6 fl (80.0-96.0); PLATELET COUNT, AUTOMATED 211 10^3/uL (150-450); RED BLOOD COUNT 5.72 10^6/uL (4.30-6.10); RED CELL DISTRIBUTION WIDTH 15.1 % (11.5-14.5)
[2017-11-10 10:42] LABS: ALBUMIN 3.7 GM/DL (3.2-5.2); ALBUMIN/GLOBULIN RATIO 1.32 (1.00-1.93); ALKALINE PHOSPHATASE 57 U/L (45-117); ALT/SGPT 35 U/L (12-78); ANION GAP 4 MEQ/L (8-16); AST/SGOT 33 U/L (7-37); BILIRUBIN,TOTAL 1.5 MG/DL (0.2-1.0); BLOOD UREA NITROGEN 12 MG/DL (7-18); CALCIUM LEVEL 8.7 MG/DL (8.5-10.1); CARBON DIOXIDE LEVEL 34 MEQ/L (21-32); CHLORIDE LEVEL 104 MEQ/L (98-107); CHOLESTEROL LEVEL 181 MG/DL (<200); CHOLESTEROL RISK RATIO 3.549 (<5); CREATININE FOR GFR 0.78 MG/DL (0.70-1.30); GLOMERULAR FILTRATION RATE > 60.0 (>56); GLUCOSE, FASTING 94 MG/DL (70-100); HDL CHOLESTEROL 51 MG/DL (>40); LDL CHOLESTEROL 99.8 MG/DL (<100); NON-HDL-C 130 MG/DL; POTASSIUM SERUM 3.7 MEQ/L (3.5-5.1); PROSTATIC SPECIFIC AG MONITOR 1.91 NG/ML (< 4.0); SODIUM LEVEL 142 MEQ/L (136-145); TOTAL PROTEIN 6.5 GM/DL (6.4-8.2); TRIGLYCERIDES LEVEL 151 MG/DL (<150)
[2017-11-10 10:47] LABS: TOTAL 25(OH) VITAMIN D 27.2 NG/ML (30.0-100.0)
[2017-11-10 12:00] LABS: TESTOSTERONE 421 NG/DL (241-827)
== END ==
LOC: M LAB 09:18
DX: R53.83 Other fatigue (principal); I10 Essential (primary) hypertension; E11.9 Type 2 diabetes mellitus without complications
CPT/HCPCS: 84403

== ENCOUNTER → 2018-01-26 | Outpatient (CLI) | payer OTHER ==
[2018-01-26 09:45] LABS: HEMATOCRIT 45.3 % (42.0-52.0); HEMOGLOBIN 15.1 g/dl (13.5-17.5); MEAN CORPUSCULAR HEMOGLOBIN 26.5 pg (27.0-33.0); MEAN CORPUSCULAR HGB CONC 33.3 g/dl (32.0-36.5); MEAN CORPUSCULAR VOLUME 79.5 fl (80.0-96.0); PLATELET COUNT, AUTOMATED 271 10^3/uL (150-450); RED CELL DISTRIBUTION WIDTH 14.4 % (11.5-14.5); WHITE BLOOD COUNT 5.3 10^3/uL (4.0-10.0)
[2018-01-26 09:55] LABS: INR 0.91; PROTHROMBIN TIME 12.3 SECONDS (12.1-14.4)
[2018-01-26 10:22] LABS: ESTIMATED AVERAGE GLUCOSE 108 MG/DL (60-110); HEMOGLOBIN A1c 5.4 %
[2018-01-26 10:56] LABS: ALBUMIN 3.8 GM/DL (3.2-5.2); ALBUMIN/GLOBULIN RATIO 1.31 (1.00-1.93); ALKALINE PHOSPHATASE 68 U/L (45-117); ALT/SGPT 38 U/L (12-78); ANION GAP 9 MEQ/L (8-16); AST/SGOT 28 U/L (7-37); BILIRUBIN,TOTAL 1.2 MG/DL (0.2-1.0); BLOOD UREA NITROGEN 13 MG/DL (7-18); CALCIUM LEVEL 9.1 MG/DL (8.5-10.1); CARBON DIOXIDE LEVEL 30 MEQ/L (21-32); CHLORIDE LEVEL 102 MEQ/L (98-107); CHOLESTEROL LEVEL 174 MG/DL (<200); CHOLESTEROL RISK RATIO 3.551 (<5); CREATININE FOR GFR 0.69 MG/DL (0.70-1.30); GLOMERULAR FILTRATION RATE > 60.0 (>56); GLUCOSE, FASTING 91 MG/DL (70-100); HDL CHOLESTEROL 49 MG/DL (>40); LDL CHOLESTEROL 89 MG/DL (<100); NON-HDL-C 125 MG/DL; POTASSIUM SERUM 3.6 MEQ/L (3.5-5.1); PROSTATIC SPECIFIC AG MONITOR 1.91 NG/ML (< 4.0); SODIUM LEVEL 141 MEQ/L (136-145); THYROID STIMULATING HORMONE 0.078 uIU/ML (0.358-3.740); TOTAL PROTEIN 6.7 GM/DL (6.4-8.2); TRIGLYCERIDES LEVEL 182 MG/DL (<150)
== END ==
LOC: M LAB 08:28
DX: Z01.818 Encounter for other preprocedural examination (principal); I10 Essential (primary) hypertension
CPT/HCPCS: 71046

== ENCOUNTER 2018-01-31 10:17 | Day surgery (SDC) | payer OTHER ==
[~2018-01-31 10:17] MED LIST changes: -ACETAMINOPHEN 325 MG TAB PO PRN; -BSS with VANC/TOB/EPI for EYE CASES IR ONE; -CELE1CAP4 PO; -COUM2.5T17 PO; -CYCLOPENTOLATE 2% OPHTH SOLN 2ML BTL OS ONE; -GABA-279 PO; -IBUP-1022 PO; -LIDOCAINE 3.5 % 1ML OPHTH TOPICAL GEL OU ONE; -LYRI75CA PO; -MILKSUS PO; -MULT1TAB10 PO; +NS 1,000 ML IV; -OFLOXACIN 0.3 % (OCUFLOX) OPTH SOL 5ML OS ONE; -PERC10TA26 PO; -PHENYLEPHRINE 2.5% OPHTH SOL 2ML OS ONE; -PHENYLEPHRINE HCL 10 % OPHTH. SOL 5ML OS PRN; -PROPARACAINE 0.5% OPHTH SOL 15ML OS PRN; -SENO8.6T10 PO; -SIMV20TA2 PO; -TRIA37.53 PO; -TROPICAMIDE 1% OPHTH SOLN 2ML OS ONE; -TYLE167L PO; -calcium PO
[2018-01-31] MEDS ORDERED: LIDOCAINE 2% INJ 100 MG/5 ML SDV (FOR ANES.) As Ordered (12:19)
[2018-01-31] MEDS ORDERED: PROPOFOL 500 MG/50 ML VIAL As Ordered (12:19)
== END 2018-01-31 12:40 | disposition home or self-care (01) ==
LOC: M OPP 10:17
DX: Z12.11 Encounter for screening for malignant neoplasm of colon (principal); K64.0 First degree hemorrhoids; I10 Essential (primary) hypertension; E78.5 Hyperlipidemia, unspecified; E03.9 Hypothyroidism, unspecified; M19.90 Unspecified osteoarthritis, unspecified site; M54.89 Other dorsalgia; F32.9 Major depressive disorder, single episode, unspecified; G47.30 Sleep apnea, unspecified; R06.83 Snoring; Z96.641 Presence of right artificial hip joint; Z79.899 Other long term (current) drug therapy
CPT/HCPCS: G0121

== ENCOUNTER → 2018-02-01 | Outpatient (CLI) | payer OTHER ==
[2018-02-01 16:27] LABS: HEMATOCRIT 44.7 % (42.0-52.0); HEMOGLOBIN 14.7 g/dl (13.5-17.5); MEAN CORPUSCULAR HEMOGLOBIN 26.7 pg (27.0-33.0); MEAN CORPUSCULAR HGB CONC 32.9 g/dl (32.0-36.5); MEAN CORPUSCULAR VOLUME 81.3 fl (80.0-96.0); PLATELET COUNT, AUTOMATED 267 10^3/uL (150-450); RED CELL DISTRIBUTION WIDTH 14.6 % (11.5-14.5); WHITE BLOOD COUNT 5.7 10^3/uL (4.0-10.0)
== END ==
LOC: M LAB 15:19
DX: Z01.812 Encounter for preprocedural laboratory examination (principal); D64.9 Anemia, unspecified
CPT/HCPCS: 85027

== ENCOUNTER 2018-02-07 08:23 | Day surgery (SDC) | payer OTHER ==
[~2018-02-07 08:23] MED LIST changes: +CYCLOPENTOLATE 2% OPHTH SOLN 2ML BTL OD; +LIDOCAINE 3.5 % 1ML OPHTH TOPICAL GEL OU; -NS 1,000 ML IV; +OFLOXACIN 0.3 % (OCUFLOX) OPTH SOL 5ML OD; +PHENYLEPHRINE 2.5% OPHTH SOL 2ML OD; +PHENYLEPHRINE HCL 10 % OPHTH. SOL 5ML OD; +TROPICAMIDE 1% OPHTH SOLN 2ML OD
[2018-02-07] MEDS ORDERED: fentaNYL 100 MCG/2 ML INJECTION (J3010) As Ordered (08:26)
[2018-02-07] MEDS ORDERED: MIDAZOLAM INJ 2 MG/2 ML VIAL (J2250) As Ordered (08:26)
[2018-02-07] MEDS ORDERED: CYCLOPENTOLATE 2% OPHTH SOLN 2ML BTL As Ordered (09:02)
[2018-02-07] MEDS ORDERED: PHENYLEPHRINE 2.5% OPHTH SOL 2ML As Ordered (09:02)
[2018-02-07] MEDS ORDERED: OFLOXACIN 0.3 % (OCUFLOX) OPTH SOL 5ML As Ordered (09:02)
[2018-02-07] MEDS ORDERED: TROPICAMIDE 1% OPHTH SOLN 2ML As Ordered (09:02)
[2018-02-07] MEDS ORDERED: PROPARACAINE 0.5% OPHTH SOL 15ML As Ordered (10:29)
[2018-02-07] MEDS: HEALON DUET (HEALON 10MG/ML 0.55ML & HEALON ENDOCOAT 30MG/ML 0.85ML) As Ordered (10:34)
[2018-02-07] MEDS: POVIDONE-IODINE 5% OPHTH PREP SOL 30ML As Ordered (10:34)
[2018-02-07] MEDS: TRIAMCINOLONE PRES FR 40 MG/ML 1ML(TRIESENCE)(OR EYE ONLY)(J3300 PER 1MG) As Ordered (10:34)
[2018-02-07] MEDS: BSS with VANC/TOB/EPI for EYE CASES IR (10:34)
[2018-02-07] MEDS: MOXIFLOXACIN IN BSS 0.25MG/0.25ML INTRACAMERAL INJ (OR EYE ONLY)(J2280) As Ordered (10:34)
[2018-02-07] MEDS: LIDOCAINE 1% SDV 5 ML VIAL As Ordered (10:34)
== END 2018-02-07 11:26 | disposition home or self-care (01) ==
LOC: M SDC 08:23
DX: H25.9 Unspecified age-related cataract (principal); I10 Essential (primary) hypertension; E78.5 Hyperlipidemia, unspecified; F32.9 Major depressive disorder, single episode, unspecified; G47.30 Sleep apnea, unspecified; Z79.899 Other long term (current) drug therapy
CPT/HCPCS: 66984

== ENCOUNTER → 2018-04-08 | Outpatient (CLI) | payer OTHER ==
[2018-04-08 13:11] LABS: PROSTATIC SPECIFIC AG MONITOR 2.1 NG/ML (< 4.0)
== END ==
LOC: M LAB 11:54
DX: N40.0 Benign prostatic hyperplasia without lower urinary tract symptoms (principal)
CPT/HCPCS: 84153

== ENCOUNTER → 2018-06-17 | Outpatient (CLI) | payer OTHER ==
[~2018-06-17] MED LIST changes: +CELE1CAP4 PO; +COUM2.5T17 PO; -CYCLOPENTOLATE 2% OPHTH SOLN 2ML BTL OD; +GABA-1171 PO; +IBUP-1022 PO; +LEVO88TA3 PO; -LIDOCAINE 3.5 % 1ML OPHTH TOPICAL GEL OU; +LYRI75CA PO; +MILK120011 PO; +MULT1TAB10 PO; -OFLOXACIN 0.3 % (OCUFLOX) OPTH SOL 5ML OD; +OMEP20CA3 PO; +PERC10TA26 PO; -PHENYLEPHRINE 2.5% OPHTH SOL 2ML OD; -PHENYLEPHRINE HCL 10 % OPHTH. SOL 5ML OD; +SENO8.6T10 PO; +SIMV20TA2 PO; +TRIA37.53 PO; -TROPICAMIDE 1% OPHTH SOLN 2ML OD; +TYLE167L PO; +TYLE325T5 PO; +calcium PO
--- NOTE | 2018-06-17 12:32 | REP ---
MR LUMBAR SPINE WITHOUT CONTRAST: HISTORY: Degenerative disc disease. Decreased signal intensity on T2-weighted images is present in the T11-12 through L5-S1 intervertebral discs. The discs are decreased in height. These findings are consistent with disc degeneration. A diffuse disc bulge is present at the L1-2 level. There is hypertrophy of the ligamenta flava and posterior articulating facets. These findings produce severe central canal stenosis. The L1 nerves exit the neural foramina without compression. A diffuse disc bulge is present at the L2-3 level. There is hypertrophy of the ligamenta flava and posterior articulating facets. These findings produce minimal central canal stenosis. There is compression of the right L2 nerve in the neural foramen. The left L2 nerve exits the neural foramen without compression. A diffuse disc bulge is present at the L3-4 level. There is hypertrophy of the ligamenta flava and posterior articulating facets. These findings produce severe central canal stenosis. There is compression of the L3 nerves in the neural foramina. A diffuse disc bulge is present at the L4-5 level. There is hypertrophy of the ligamenta flava and posterior articulating facets. These findings produce mild central canal stenosis. The L4 nerves exit the neural foramina without compression. A diffuse disc bulge is present at the L5-S1 level. This abuts the thecal sac. There is hypertrophy of the posterior articulating facets. There are 4 mm of grade 1 spondylolisthesis of L5 on S1. This is associated with L5 pars defects. There is compression of the L5 nerves in the neural foramina. The conus medullaris is normal in appearance terminating at the level of the T12-L1 intervertebral disc. There are old compression fractures of the T12 and L1 vertebral bodies with minimal height loss. Increased signal intensity on T2-weighted images is present in the endplates of the T12 , L1, L3 and L4 vertebral bodies. This represents degenerative change. IMPRESSION: 1. Severe central canal stenosis at the L1-2 and L3-4 levels secondary to disc bulge, ligamentous and facet hypertrophy. There is compression of the L3 nerves in the neural foramina. 2. Minimal central canal stenosis at the L2-3 level secondary to disc bulge, ligamentous and facet hypertrophy. There is compression of the right L2 nerve in the neural foramen. 3. Mild central canal stenosis at the L4-5 level secondary to disc bulge, ligamentous and facet hypertrophy. 4. Diffuse disc bulge at the L5-S1 level. This abuts the thecal sac. There is grade 1 spondylolisthesis of L5 on S1 with associated L5 pars defects. There is compression of the L5 nerves in the neural foramina. Electronically Signed by Pool Chaudhry MD 06/17/2018 12:35 P
== END ==
LOC: M RAD 10:15
PROVIDERS: ATTEND Physician Assistant
DX: M51.36 Other intervertebral disc degeneration, lumbar region (principal); M51.27 Other intervertebral disc displacement, lumbosacral region; M48.061 Spinal stenosis, lumbar region without neurogenic claudication; M51.26 Other intervertebral disc displacement, lumbar region

== ENCOUNTER → 2018-10-03 | Outpatient (CLI) | payer OTHER ==
[2018-10-03 18:53] LABS: INR 0.97
[2018-10-03 18:54] LABS: PARTIAL THROMBOPLASTIN TIME 31.5 SECONDS (25.4-37.6)
== END ==
LOC: M LAB 16:43
PROVIDERS: ATTEND Orthopaedic Surgery
DX: Z01.812 Encounter for preprocedural laboratory examination (principal)

== ENCOUNTER → 2019-03-08 | Outpatient (CLI) | payer OTHER ==
[~2019-03-08] MED LIST changes: -OMEP20CA3 PO; +OMEP20CA4 PO
== END ==
LOC: M LAB 16:25
PROVIDERS: ATTEND Ophthalmology
DX: M35.00 Sjogren syndrome, unspecified (principal)

== ENCOUNTER → 2019-06-26 | Outpatient (CLI) | payer OTHER ==
[~2019-06-26] MED LIST changes: +OMEP1CAP73 PO; -OMEP20CA4 PO; -SIMV20TA2 PO; +SIMV20TA22 PO
[2019-06-26 09:42] LABS: HEMATOCRIT 47.5 % (42.0-52.0); HEMOGLOBIN 15.7 g/dl (13.5-17.5); MEAN CORPUSCULAR HEMOGLOBIN 26.7 pg (27.0-33.0); MEAN CORPUSCULAR HGB CONC 33.1 g/dl (32.0-36.5); MEAN CORPUSCULAR VOLUME 80.9 fl (80.0-96.0); PLATELET COUNT, AUTOMATED 240 10^3/uL (150-450); RED BLOOD COUNT 5.87 10^6/uL (4.30-6.10)
[2019-06-26 10:05] LABS: HEMOGLOBIN A1c 5.5 %
[2019-06-26 10:19] LABS: ALBUMIN 3.8 GM/DL (3.2-5.2); ALT/SGPT 34 U/L (12-78); BILIRUBIN,TOTAL 1.3 MG/DL (0.2-1.0); BLOOD UREA NITROGEN 14 MG/DL (7-18); CARBON DIOXIDE LEVEL 31 MEQ/L (21-32); CHLORIDE LEVEL 103 MEQ/L (98-107); CHOLESTEROL LEVEL 188 MG/DL (<200); CHOLESTEROL RISK RATIO 3.418 (<5); CREATININE FOR GFR 0.88 MG/DL (0.70-1.30); GLOMERULAR FILTRATION RATE > 60.0 (>56); GLUCOSE, FASTING 101 MG/DL (70-100); HDL CHOLESTEROL 55 MG/DL (>40); LDL CHOLESTEROL 105 MG/DL (<100); NON-HDL-C 133 MG/DL; POTASSIUM SERUM 3.6 MEQ/L (3.5-5.1); PROSTATIC SPECIFIC AG MONITOR 3.33 NG/ML (< 4.00); SODIUM LEVEL 140 MEQ/L (136-145); TOTAL PROTEIN 6.6 GM/DL (6.4-8.2); TRIGLYCERIDES LEVEL 140 MG/DL (<150)
[2019-06-26 10:29] LABS: TESTOSTERONE 424 NG/DL (241-827)
== END ==
LOC: M LAB 08:43
PROVIDERS: ATTEND Family Medicine
DX: E03.9 Hypothyroidism, unspecified (principal); R53.83 Other fatigue; I10 Essential (primary) hypertension

== ENCOUNTER → 2020-03-08 | Outpatient (CLI) | payer OTHER ==
[2020-03-08 09:05] LABS: HEMATOCRIT 49.7 % (42.0-52.0); HEMOGLOBIN 16.3 g/dl (13.5-17.5); MEAN CORPUSCULAR HEMOGLOBIN 27.1 pg (27.0-33.0); MEAN CORPUSCULAR HGB CONC 32.8 g/dl (32.0-36.5); MEAN CORPUSCULAR VOLUME 82.7 fl (80.0-96.0); PLATELET COUNT, AUTOMATED 255 10^3/uL (150-450); RED BLOOD COUNT 6.01 10^6/uL (4.30-6.10); WHITE BLOOD COUNT 5.5 10^3/uL (4.0-10.0)
[2020-03-08 09:45] LABS: ALBUMIN 3.9 GM/DL (3.2-5.2); ALT/SGPT 41 U/L (12-78); BILIRUBIN,TOTAL 1.2 MG/DL (0.2-1.0); BLOOD UREA NITROGEN 16 MG/DL (7-18); CALCIUM LEVEL 9.5 MG/DL (8.5-10.1); CARBON DIOXIDE LEVEL 30 MEQ/L (21-32); CHLORIDE LEVEL 104 MEQ/L (98-107); CHOLESTEROL LEVEL 202 MG/DL (<200); CHOLESTEROL RISK RATIO 3.423 (<5); CREATININE FOR GFR 0.89 MG/DL (0.70-1.30); GLOMERULAR FILTRATION RATE > 60.0 (>56); GLUCOSE, FASTING 95 MG/DL (70-100); HDL CHOLESTEROL 59 MG/DL (>40); LDL CHOLESTEROL 114 MG/DL (<100); NON-HDL-C 143 MG/DL; POTASSIUM SERUM 3.3 MEQ/L (3.5-5.1); PROSTATIC SPECIFIC AG MONITOR 2.39 NG/ML (< 4.00); SODIUM LEVEL 141 MEQ/L (136-145); TOTAL PROTEIN 6.9 GM/DL (6.4-8.2); TRIGLYCERIDES LEVEL 144 MG/DL (<150)
[2020-03-08 09:47] LABS: TESTOSTERONE 374 NG/DL (241-827)
--- NOTE | 2020-03-08 09:52 | REP ---
INDICATION: HTN,FITIGUE,PREOP/LABS,EKG FIRST. COMPARISON: January 26, 2018. TECHNIQUE: Two views.. FINDINGS: The lungs are well inflated and free of infiltrate. The pleural angles are sharp. The heart size is normal. Pulmonary vasculature is not increased. No significant bony abnormality is seen. There are degenerative disc changes in the thoracolumbar spine. There is a somewhat exaggerated thoracolumbar kyphosis. This is unchanged. IMPRESSION: No active cardiopulmonary disease.. <Electronically signed by Magdy Cain > 03/08/20 0928
[2020-03-08 10:12] LABS: HEMOGLOBIN A1c 5.4 %
--- NOTE | 2020-03-09 08:08 | ECGEPIP ---
[facility] Test Date: 2020-03-08 Pat Name: HA CHAWLA Department: Room: - Gender: Male [employer] Dean: YOLANDA : 1960 Requested By: Raj Hua Order Number: [id number] Reading MD: Jet Metz Measurements Intervals [place] Rate: 79 P: 77 OR: 212 QRS: 42 QRSD: 118 T: 40 QT: 376 QTc: 431 Interpretive Statements SINUS RHYTHM WITH FIRST DEGREE AV BLOCK Inferior Q waves of uncertain significance Low QRS complex voltage in the limb leads Delayed anterior R wave progression Baseline artifact Similar to tracing done 01-26-18 Electronically Signed on 03-09-2020 8:08:42 EST by Jet Metz
== END ==
LOC: M LAB 08:04
PROVIDERS: ATTEND Family Medicine
DX: I10 Essential (primary) hypertension (principal)

== ENCOUNTER → 2021-06-09 | Outpatient (CLI) | payer OTHER ==
[2021-06-09 10:12] LABS: HEMATOCRIT 49.7 % (42.0-52.0); HEMOGLOBIN 16.4 g/dl (13.5-17.5); MEAN CORPUSCULAR HEMOGLOBIN 27.5 pg (27.0-33.0); MEAN CORPUSCULAR VOLUME 83.4 fl (80.0-96.0); PLATELET COUNT, AUTOMATED 227 10^3/uL (150-450); RED BLOOD COUNT 5.96 10^6/uL (4.30-6.10); WHITE BLOOD COUNT 4.9 10^3/uL (4.0-10.0)
[2021-06-09 10:29] LABS: HEMOGLOBIN A1c 5.6 %
[2021-06-09 10:43] LABS: ALBUMIN 3.7 GM/DL (3.2-5.2); ALT/SGPT 43 U/L (12-78); BILIRUBIN,TOTAL 1.6 MG/DL (0.2-1.0); BLOOD UREA NITROGEN 14 MG/DL (7-18); CALCIUM LEVEL 9.9 MG/DL (8.5-10.1); CARBON DIOXIDE LEVEL 31 MEQ/L (21-32); CHLORIDE LEVEL 102 MEQ/L (98-107); CHOLESTEROL LEVEL 201 MG/DL (<200); CHOLESTEROL RISK RATIO 3.526 (<5); CREATININE FOR GFR 0.92 MG/DL (0.70-1.30); GLOMERULAR FILTRATION RATE > 60.0 (>56); GLUCOSE, FASTING 103 MG/DL (70-100); HDL CHOLESTEROL 57 MG/DL (>40); LDL CHOLESTEROL 111 MG/DL (<100); NON-HDL-C 144 MG/DL; SODIUM LEVEL 141 MEQ/L (136-145); TRIGLYCERIDES LEVEL 167 MG/DL (<150)
[2021-06-09 12:04] LABS: TOTAL 25(OH) VITAMIN D 34.1 NG/ML (30.0-100.0)
[2021-06-10 00:12] LABS: TESTOSTERONE 293 NG/DL (241-827)
== END ==
LOC: M LAB 09:28
PROVIDERS: ATTEND Family Medicine
DX: I10 Essential (primary) hypertension (principal); E03.9 Hypothyroidism, unspecified; R53.83 Other fatigue

== ENCOUNTER 2021-06-21 16:36 | Emergency (ER) | payer OTHER ==
[~2021-06-21] VITALS: Ht 177.8 cm; Wt 138.6 kg
[2021-06-21 17:56] VITALS: BP 160/72
== END 2021-06-21 18:08 | disposition home or self-care (01) ==
LOC: EDBD 16:36 → M ED 16:36
DX: S93.402A Sprain of unspecified ligament of left ankle, initial encounter (principal); W00.9XXA Unspecified fall due to ice and snow, initial encounter; F32.A Depression, unspecified; E11.9 Type 2 diabetes mellitus without complications; E78.5 Hyperlipidemia, unspecified; G47.33 Obstructive sleep apnea (adult) (pediatric); Y92.009 Unspecified place in unspecified non-institutional (private) residence as the place of occurrence of the external cause; Y93.9 Activity, unspecified; Y99.9 Unspecified external cause status

== ENCOUNTER 2021-07-02 14:51 | Observation (INO) | payer OTHER ==
[~2021-07-02] VITALS: Ht 177.8 cm; Wt 136.0 kg
[~2021-07-02 14:51] MED LIST changes: +BACT800T5 PO; +IBUP200C25 PO
[2021-07-02] MEDS ORDERED: LEVO100T5 (15:02)
[2021-07-02 17:57] LABS: BASO # 0.1 10^3/uL (0.0-0.2); EOS # 0.2 10^3/uL (0.0-0.5); EOS % 2.9 % (0.0-3.0); HEMATOCRIT 44.3 % (42.0-52.0); HEMOGLOBIN 14.9 g/dl (13.5-17.5); LYMPH # 1.9 10^3/uL (1.5-5.0); MEAN CORPUSCULAR HEMOGLOBIN 27.5 pg (27.0-33.0); MEAN CORPUSCULAR HGB CONC 33.6 g/dl (32.0-36.5); MEAN CORPUSCULAR VOLUME 81.7 fl (80.0-96.0); MONO # 0.9 10^3/uL (0.0-0.8); MONO % 11.6 % (2.0-8.0); NEUTROPHILS # 4.8 10^3/uL (1.5-8.5); NEUTROPHILS % 59.1 % (36.0-66.0); PLATELET COUNT, AUTOMATED 383 10^3/uL (150-450); RED BLOOD COUNT 5.42 10^6/uL (4.30-6.10); WHITE BLOOD COUNT 8.1 10^3/uL (4.0-10.0)
[2021-07-02 18:18] LABS: ERYTHROCYTE SEDIMENTATION RATE 37 mm/hr (0-20)
[2021-07-02 18:22] LABS: ALBUMIN 3.7 GM/DL (3.2-5.2); ALT/SGPT 51 U/L (12-78); BILIRUBIN,TOTAL 0.8 MG/DL (0.2-1.0); BLOOD UREA NITROGEN 10 MG/DL (7-18); C REACTIVE PROTEIN QUANTITATIV 0.76 MG/DL (0.00-0.30); CALCIUM LEVEL 9.2 MG/DL (8.5-10.1); CARBON DIOXIDE LEVEL 28 MEQ/L (21-32); CHLORIDE LEVEL 104 MEQ/L (98-107); CREATININE FOR GFR 1.13 MG/DL (0.70-1.30); GLOMERULAR FILTRATION RATE > 60.0 (>56); GLUCOSE, FASTING 76 MG/DL (70-100); POTASSIUM SERUM 3.8 MEQ/L (3.5-5.1); SODIUM LEVEL 137 MEQ/L (136-145); TOTAL PROTEIN 7.1 GM/DL (6.4-8.2)
[2021-07-02 21:36] LABS: RSV AMPLIFICATION NEGATIVE (NEGATIVE)
[2021-07-02] MEDS ORDERED: ISOVUE-370 76% 100ML VIAL As Ordered ONE (21:41)
[2021-07-02] MEDS ORDERED: BACT800T5 PO (22:52)
[2021-07-02] MEDS ORDERED: TEST200I14 IM (22:52)
[2021-07-02] MEDS ORDERED: VITMTA PO (22:52)
[2021-07-02] MEDS ORDERED: OYST500T92 PO (22:52)
[2021-07-02] MEDS ORDERED: SYNT100T PO (22:52)
[2021-07-02] MEDS ORDERED: HOME MED LIST COMPLETE! XX SCH (22:55)
[2021-07-02] MEDS ORDERED: MAALOX 30 ML SUSP *UDC PO PRN (23:15)
[2021-07-02] MEDS ORDERED: ACETAMINOPHEN TAB 650MG DOSE (2X325MG) PO PRN (23:15)
[2021-07-02] MEDS ORDERED: VANCOMYCIN HCL 1,000 MG, VIAL MATE ADAPTER 1 EACH in NS 250 ML IV SCH (23:25)
[2021-07-03] MEDS ORDERED: VANCOMYCIN HCL 1,000 MG, VIAL MATE ADAPTER 1 EACH in NS 250 ML IV ONE ×4 (01:00)
[2021-07-03 02:00] VITALS: BP 146/87
[2021-07-03] MEDS ORDERED: diphenhydrAMINE 50MG/ML VIAL (J1200) IV STA (03:14)
[2021-07-03 06:01] VITALS: BP 136/78
[2021-07-03 07:14] LABS: BASO # 0.1 10^3/uL (0.0-0.2); BASO % 0.9 % (0.0-1.0); EOS # 0.3 10^3/uL (0.0-0.5); EOS % 4.2 % (0.0-3.0); HEMATOCRIT 39.2 % (42.0-52.0); HEMOGLOBIN 13.1 g/dl (13.5-17.5); LYMPH # 1.7 10^3/uL (1.5-5.0); MEAN CORPUSCULAR HEMOGLOBIN 27.7 pg (27.0-33.0); MEAN CORPUSCULAR HGB CONC 33.4 g/dl (32.0-36.5); MEAN CORPUSCULAR VOLUME 82.9 fl (80.0-96.0); MONO # 0.8 10^3/uL (0.0-0.8); MONO % 12.2 % (2.0-8.0); NEUTROPHILS # 3.8 10^3/uL (1.5-8.5); NEUTROPHILS % 56.5 % (36.0-66.0); PLATELET COUNT, AUTOMATED 310 10^3/uL (150-450); RED BLOOD COUNT 4.73 10^6/uL (4.30-6.10); WHITE BLOOD COUNT 6.7 10^3/uL (4.0-10.0)
[2021-07-03 07:44] LABS: BLOOD UREA NITROGEN 8 MG/DL (7-18); C REACTIVE PROTEIN QUANTITATIV 0.69 MG/DL (0.00-0.30); CALCIUM LEVEL 8.6 MG/DL (8.5-10.1); CARBON DIOXIDE LEVEL 29 MEQ/L (21-32); CHLORIDE LEVEL 104 MEQ/L (98-107); CREATININE FOR GFR 1.05 MG/DL (0.70-1.30); GLOMERULAR FILTRATION RATE > 60.0 (>56); GLUCOSE, FASTING 116 MG/DL (70-100); MAGNESIUM LEVEL 2.1 MG/DL (1.8-2.4); POTASSIUM SERUM 3.1 MEQ/L (3.5-5.1); SODIUM LEVEL 138 MEQ/L (136-145)
[2021-07-03] MEDS: ENOXAPARIN 40MG/0.4ML SYRINGE (J1650 PER 10MG) SC SCH (09:44)
[2021-07-03] MEDS: DOCUSATE SODIUM 100MG CAPSULE PO SCH ×2 (09:44→21:30)
[2021-07-03] MEDS ORDERED: VANCOMYCIN HCL 750 MG, VIAL MATE ADAPTER 1 EACH in NS 250 ML IV SCH ×2 (10:00→11:00)
[2021-07-03 14:00] VITALS: BP 134/70
[2021-07-03] MEDS ORDERED: POTASSIUM CHLORIDE 10MEQ SR TABLET PO ONE (21:10)
[2021-07-03 22:00] VITALS: BP 123/51
[2021-07-03] MEDS: cefTRIAXone SOD 1 GM in D5W MINI-BAG PLUS 50 ML IV SCH ×3 (23:50)
[2021-07-04 06:28] LABS: BASO # 0.1 10^3/uL (0.0-0.2); EOS # 0.3 10^3/uL (0.0-0.5); EOS % 5.4 % (0.0-3.0); HEMATOCRIT 38.7 % (42.0-52.0); HEMOGLOBIN 12.5 g/dl (13.5-17.5); LYMPH # 1.8 10^3/uL (1.5-5.0); LYMPH % 33.8 % (24.0-44.0); MEAN CORPUSCULAR HEMOGLOBIN 27.7 pg (27.0-33.0); MEAN CORPUSCULAR HGB CONC 32.3 g/dl (32.0-36.5); MEAN CORPUSCULAR VOLUME 85.6 fl (80.0-96.0); MONO # 0.6 10^3/uL (0.0-0.8); MONO % 11.8 % (2.0-8.0); NEUTROPHILS # 2.4 10^3/uL (1.5-8.5); NEUTROPHILS % 46.3 % (36.0-66.0); PLATELET COUNT, AUTOMATED 276 10^3/uL (150-450); RED BLOOD COUNT 4.52 10^6/uL (4.30-6.10); WHITE BLOOD COUNT 5.2 10^3/uL (4.0-10.0)
[2021-07-04 06:54] LABS: BLOOD UREA NITROGEN 13 MG/DL (7-18); CALCIUM LEVEL 8.6 MG/DL (8.5-10.1); CARBON DIOXIDE LEVEL 32 MEQ/L (21-32); CHLORIDE LEVEL 107 MEQ/L (98-107); CREATININE FOR GFR 0.96 MG/DL (0.70-1.30); GLOMERULAR FILTRATION RATE > 60.0 (>56); GLUCOSE, FASTING 93 MG/DL (70-100); MAGNESIUM LEVEL 2.1 MG/DL (1.8-2.4); POTASSIUM SERUM 3.7 MEQ/L (3.5-5.1); SODIUM LEVEL 141 MEQ/L (136-145)
[2021-07-04 07:04] VITALS: BP 116/72
[2021-07-04] MEDS ORDERED: DOXYCYCLINE HYCLATE 100MG TABLET PO SCH (08:00)
[2021-07-04] MEDS: ENOXAPARIN 40MG/0.4ML SYRINGE (J1650 PER 10MG) SC SCH (08:51)
[2021-07-04] MEDS: DOCUSATE SODIUM 100MG CAPSULE PO SCH (08:51)
[2021-07-04] MEDS ORDERED: DOXY100T PO (09:39)
[2021-07-04] MEDS ORDERED: CEFD300C41 PO (09:39)
== END 2021-07-04 13:06 | disposition home or self-care (01) ==
LOC: M ED 14:51 → M ED INP 23:14 → ENRESERV 07-03 01:28 → M MSPAV 07-03 01:47
PROVIDERS: ADMIT Family Medicine; ATTEND Internal Medicine
DX: L03.116 Cellulitis of left lower limb (principal); I10 Essential (primary) hypertension; E78.5 Hyperlipidemia, unspecified; E03.9 Hypothyroidism, unspecified; K21.9 Gastro-esophageal reflux disease without esophagitis; Z79.899 Other long term (current) drug therapy
CPT/HCPCS: 36415; 75635; 80048; 80053; 83605; 83735; 84145; 85025; 85652; 86140; 87040; 87631; 87641; 93971; 96365; 96366; 96367; 96372; 96375; 97116; 97161; 99284; J0696; J1200; J1650; J3370; Q9967

== ENCOUNTER → 2021-08-19 | Outpatient (REF) | payer OTHER ==
[~2021-08-19] MED LIST changes: +CEFD300C41 PO; +DOXY100T PO; +LEVO100T5; +OYST500T92 PO; +SYNT100T PO; +TEST200I14 IM; +VITMTA PO
[2021-08-19 12:46] LABS: BASO # 0.1 10^3/uL (0.0-0.2); BASO % 1.1 % (0.0-1.0); EOS # 0.1 10^3/uL (0.0-0.5); EOS % 2.4 % (0.0-3.0); HEMATOCRIT 47.7 % (42.0-52.0); HEMOGLOBIN 15.9 g/dl (13.5-17.5); LYMPH # 1.3 10^3/uL (1.5-5.0); LYMPH % 28.9 % (24.0-44.0); MEAN CORPUSCULAR HGB CONC 33.3 g/dl (32.0-36.5); MONO # 0.5 10^3/uL (0.0-0.8); MONO % 11.2 % (2.0-8.0); NEUTROPHILS # 2.5 10^3/uL (1.5-8.5); NEUTROPHILS % 55.5 % (36.0-66.0); PLATELET COUNT, AUTOMATED 256 10^3/uL (150-450); RED BLOOD COUNT 5.89 10^6/uL (4.30-6.10); WHITE BLOOD COUNT 4.6 10^3/uL (4.0-10.0)
[2021-08-19 13:26] LABS: ALBUMIN 3.9 GM/DL (3.2-5.2); ALT/SGPT 38 U/L (12-78); BILIRUBIN,TOTAL 1.7 MG/DL (0.2-1.0); BLOOD UREA NITROGEN 15 MG/DL (7-18); CALCIUM LEVEL 9.8 MG/DL (8.5-10.1); CARBON DIOXIDE LEVEL 30 MEQ/L (21-32); CHLORIDE LEVEL 101 MEQ/L (98-107); CHOLESTEROL LEVEL 205 MG/DL (<200); CHOLESTEROL RISK RATIO 3.534 (<5); CREATININE FOR GFR 0.84 MG/DL (0.70-1.30); FOLATE > 24.0 NG/ML; GLOMERULAR FILTRATION RATE > 60.0 (>56); GLUCOSE, FASTING 106 MG/DL (70-100); HDL CHOLESTEROL 58 MG/DL (>40); IRON (FE) 77 UG/DL (65-175); LDL CHOLESTEROL 117 MG/DL (<100); NON-HDL-C 147 MG/DL; PERCENT SATURATION 25.8 % (19.7-50.0); POTASSIUM SERUM 3.7 MEQ/L (3.5-5.1); SODIUM LEVEL 138 MEQ/L (136-145); TOTAL 25(OH) VITAMIN D 29.8 NG/ML (30.0-100.0); TOTAL IRON BINDING CAPACITY 298 UG/DL (250-450); TOTAL PROTEIN 6.9 GM/DL (6.4-8.2); TRIGLYCERIDES LEVEL 148 MG/DL (<150)
[2021-08-19 13:38] LABS: HEMOGLOBIN A1c 5.2 %
== END ==
LOC: M SFHCADAM 10:57
PROVIDERS: ATTEND Physician Assistant Medical
DX: I10 Essential (primary) hypertension (principal); K76.0 Fatty (change of) liver, not elsewhere classified; E78.2 Mixed hyperlipidemia; E29.1 Testicular hypofunction; I25.10 Atherosclerotic heart disease of native coronary artery without angina pectoris

== ENCOUNTER → 2021-09-17 | Outpatient (CLI) | payer OTHER | LOC: M CARPUL 14:58 | PROVIDERS: ATTEND Physician Assistant Medical | DX: R60.1 Generalized edema (principal) ==

== ENCOUNTER → 2021-09-17 | Outpatient (REF) | payer OTHER ==
[2021-09-17 17:05] LABS: MALB URINE SIEMENS 37.4 MG/L
== END ==
LOC: M SFHCADAM 16:10
PROVIDERS: ATTEND Physician Assistant Medical
DX: I10 Essential (primary) hypertension (principal); K76.0 Fatty (change of) liver, not elsewhere classified; E78.2 Mixed hyperlipidemia; E29.1 Testicular hypofunction; I25.10 Atherosclerotic heart disease of native coronary artery without angina pectoris

== ENCOUNTER → 2021-10-13 | Outpatient (REF) | payer OTHER ==
[~2021-10-13] MED LIST changes: -TRIA37.53 PO; +TRIA37.577 PO
[2021-10-13 17:26] LABS: FREE T4 0.91 NG/DL (0.76-1.46); THYROID STIMULATING HORMONE 2.66 uIU/ML (0.358-3.740)
== END ==
LOC: M SFHCADAM 13:08
PROVIDERS: ATTEND Physician Assistant Medical
DX: E03.9 Hypothyroidism, unspecified (principal)

== ENCOUNTER → 2022-07-15 | Outpatient (REF) | payer OTHER ==
[2022-07-15 16:15] LABS: BASO # 0.1 10^3/uL (0.0-0.2); EOS # 0.2 10^3/uL (0.0-0.5); EOS % 3.7 % (0.0-3.0); HEMATOCRIT 47.9 % (42.0-52.0); HEMOGLOBIN 15.5 g/dl (13.5-17.5); LYMPH # 1.4 10^3/uL (1.5-5.0); LYMPH % 22.3 % (24.0-44.0); MEAN CORPUSCULAR HEMOGLOBIN 27.1 pg (27.0-33.0); MEAN CORPUSCULAR HGB CONC 32.4 g/dl (32.0-36.5); MEAN CORPUSCULAR VOLUME 83.7 fl (80.0-96.0); MONO # 0.5 10^3/uL (0.0-0.8); MONO % 8.7 % (2.0-8.0); NEUTROPHILS # 3.9 10^3/uL (1.5-8.5); NEUTROPHILS % 63.2 % (36.0-66.0); PLATELET COUNT, AUTOMATED 238 10^3/uL (150-450); RED BLOOD COUNT 5.72 10^6/uL (4.30-6.10); WHITE BLOOD COUNT 6.2 10^3/uL (4.0-10.0)
[2022-07-15 16:44] LABS: THYROID STIMULATING HORMONE 3.052 uIU/ML (0.55-4.78)
[2022-07-15 16:45] LABS: TOTAL 25(OH) VITAMIN D 44.1 NG/ML (20.0-100.0)
[2022-07-15 16:48] LABS: ALBUMIN 3.7 G/DL (3.2-5.2); ALKALINE PHOSPHATASE 70 U/L (46-116); ALT/SGPT 28 U/L (7.0-40); AST/SGOT 35 U/L (<34); BILIRUBIN,TOTAL 1.3 MG/DL (0.3-1.2); BLOOD UREA NITROGEN 18 MG/DL (9-23); CALCIUM LEVEL 9.5 MG/DL (8.3-10.6); CARBON DIOXIDE LEVEL 32 MMOL/L (20-31); CHLORIDE LEVEL 102 MMOL/L (98-107); CHOLESTEROL LEVEL 197 MG/DL (<200); CHOLESTEROL RISK RATIO 3.82 (<5); CREATININE FOR GFR 0.75 MG/DL (0.70-1.30); GLOMERULAR FILTRATION RATE > 60.0 (>49); GLUCOSE, FASTING 104 MG/DL (74-106); HDL CHOLESTEROL 51.5 MG/DL (>40); LDL CHOLESTEROL 70.5 MG/DL (<100); NON-HDL-C 145.5 MG/DL; POTASSIUM SERUM 4.1 MMOL/L (3.5-5.1); SODIUM LEVEL 138 MMOL/L (136-145); TOTAL PROTEIN 6.6 G/DL (5.7-8.2); TRIGLYCERIDES LEVEL 375 MG/DL (<150)
[2022-07-15 17:09] LABS: HEMOGLOBIN A1c 5.6 % (4.0-6.0)
== END ==
LOC: M SFHCADAM 14:47
PROVIDERS: ATTEND Physician Assistant Medical
DX: E66.01 Morbid (severe) obesity due to excess calories (principal); K76.0 Fatty (change of) liver, not elsewhere classified; E78.2 Mixed hyperlipidemia; E29.1 Testicular hypofunction; E03.9 Hypothyroidism, unspecified; E55.9 Vitamin D deficiency, unspecified

== ENCOUNTER 2023-01-07 09:45 | Emergency (ER) | payer OTHER ==
[~2023-01-07] VITALS: Ht 177.8 cm; Wt 124.8 kg
[2023-01-07 09:46] VITALS: BP 160/72; TEMP 97.2; O2SAT 94
[2023-01-07] MEDS ORDERED: TRIA37.577 PO (12:12)
[2023-01-07] MEDS ORDERED: SIMV20TA22 PO (12:12)
== END 2023-01-07 12:27 | disposition home or self-care (01) ==
LOC: M ED 09:45
DX: Z76.0 Encounter for issue of repeat prescription (principal); I10 Essential (primary) hypertension; E78.5 Hyperlipidemia, unspecified; Z79.810 Long term (current) use of selective estrogen receptor modulators (SERMs); Z79.02 Long term (current) use of antithrombotics/antiplatelets; Z79.899 Other long term (current) drug therapy

== ENCOUNTER 2023-02-06 13:35 | Emergency (ER) | payer OTHER ==
[~2023-02-06] VITALS: Ht 177.8 cm; Wt 124.2 kg
[2023-02-06 13:36] VITALS: BP 148/71; TEMP 97; O2SAT 98
[2023-02-06] MEDS ORDERED: SIMV20TA22 PO (14:59)
[2023-02-06] MEDS ORDERED: TRIA37.577 PO (14:59)
== END 2023-02-06 15:23 | disposition home or self-care (01) ==
LOC: M ED 13:35
DX: E78.5 Hyperlipidemia, unspecified (principal); I10 Essential (primary) hypertension; Z76.0 Encounter for issue of repeat prescription; K21.9 Gastro-esophageal reflux disease without esophagitis; K46.9 Unspecified abdominal hernia without obstruction or gangrene; Z79.810 Long term (current) use of selective estrogen receptor modulators (SERMs); Z79.899 Other long term (current) drug therapy

== ENCOUNTER → 2023-02-23 | Outpatient (CLI) | payer OTHER ==
[~2023-02-23] MED LIST changes: -CEFD300C41 PO; +CEFD300C42 PO
[2023-02-23 10:20] LABS: APPEARANCE, URINE CLEAR (CLEAR); BACTERIA, URINE AUTO NEGATIVE (NEGATIVE); BILIRUBIN, URINE AUTO NEGATIVE (NEGATIVE); BLOOD, URINE BLOOD NEGATIVE (NEGATIVE); COLOR, URINE YELLOW (YELLOW); GLUCOSE, URINE (UA) AUTO NEGATIVE (NEGATIVE); KETONE, URINE AUTO NEGATIVE (NEGATIVE); LEUKOCYTE ESTERASE, URINE AUTO 1+ (NEGATIVE); NITRITE, URINE AUTO NEGATIVE (NEGATIVE); PROTEIN, URINE AUTO NEGATIVE (NEGATIVE); RBC, URINE AUTO 0 /HPF (0-3); SQUAMOUS EPITHELIAL CELL UR AU 0 /HPF (0-6); UROBILINOGEN, URINE AUTO 0.2 mg/dL (0.0-2.0); WBC, URINE AUTO 2 /HPF (0-3)
[2023-02-23 10:27] LABS: BASO % 0.9 % (0.0-1.0); EOS # 0.1 10^3/uL (0.0-0.5); HEMATOCRIT 47.4 % (42.0-52.0); HEMOGLOBIN 15.3 g/dl (13.5-17.5); LYMPH # 1.2 10^3/uL (1.5-5.0); LYMPH % 26.5 % (24.0-44.0); MEAN CORPUSCULAR HEMOGLOBIN 26.6 pg (27.0-33.0); MEAN CORPUSCULAR HGB CONC 32.3 g/dl (32.0-36.5); MEAN CORPUSCULAR VOLUME 82.4 fl (80.0-96.0); MONO # 0.5 10^3/uL (0.0-0.8); MONO % 11.6 % (2.0-8.0); NEUTROPHILS # 2.7 10^3/uL (1.5-8.5); NEUTROPHILS % 57.4 % (36.0-66.0); PLATELET COUNT, AUTOMATED 274 10^3/uL (150-450); RED BLOOD COUNT 5.75 10^6/uL (4.30-6.10); WHITE BLOOD COUNT 4.7 10^3/uL (4.0-10.0)
[2023-02-23 10:53] LABS: ALBUMIN 3.7 G/DL (3.2-5.2); ALKALINE PHOSPHATASE 59 U/L (46-116); ALT/SGPT 34 U/L (7.0-40); AST/SGOT 38 U/L (<34); BILIRUBIN,TOTAL 1.8 MG/DL (0.3-1.2); BLOOD UREA NITROGEN 9 MG/DL (9-23); CALCIUM LEVEL 9.2 MG/DL (8.3-10.6); CARBON DIOXIDE LEVEL 30 MMOL/L (20-31); CHLORIDE LEVEL 102 MMOL/L (98-107); CHOLESTEROL LEVEL 162 MG/DL (<200); CHOLESTEROL RISK RATIO 3.23 (<5); CREATININE FOR GFR 0.75 MG/DL (0.70-1.30); FREE T4 1.07 NG/DL (0.89-1.76); GLOMERULAR FILTRATION RATE > 60.0 (>49); GLUCOSE, FASTING 95 MG/DL (74-106); HDL CHOLESTEROL 50.1 MG/DL (>40); LDL CHOLESTEROL 84.5 MG/DL (<100); NON-HDL-C 111.9 MG/DL; POTASSIUM SERUM 3.9 MMOL/L (3.5-5.1); SODIUM LEVEL 141 MMOL/L (136-145); THYROID STIMULATING HORMONE 3.535 uIU/ML (0.55-4.78); TOTAL PROTEIN 6.3 G/DL (5.7-8.2); TRIGLYCERIDES LEVEL 137 MG/DL (<150)
[2023-02-24 23:07] LABS: PSA TOTAL 2.6 ng/mL (0.0-4.0)
== END ==
LOC: M LAB 08:16
PROVIDERS: ATTEND Family Medicine
DX: Z00.01 Encounter for general adult medical examination with abnormal findings (principal); I10 Essential (primary) hypertension; E78.5 Hyperlipidemia, unspecified

== ENCOUNTER → 2023-08-25 | Outpatient (CLI) | payer OTHER ==
[~2023-08-25] MED LIST changes: +CEFD1CAP9 PO; -CEFD300C42 PO
[2023-08-25 10:14] LABS: BASO # 0.1 10^3/uL (0.0-0.2); EOS # 0.2 10^3/uL (0.0-0.5); EOS % 3.5 % (0.0-3.0); HEMATOCRIT 49.5 % (42.0-52.0); HEMOGLOBIN 16.1 g/dl (13.5-17.5); LYMPH # 1.5 10^3/uL (1.5-5.0); LYMPH % 29.7 % (24.0-44.0); MEAN CORPUSCULAR HEMOGLOBIN 27.3 pg (27.0-33.0); MEAN CORPUSCULAR HGB CONC 32.5 g/dl (32.0-36.5); MEAN CORPUSCULAR VOLUME 83.9 fl (80.0-96.0); MONO # 0.4 10^3/uL (0.0-0.8); MONO % 8.4 % (2.0-8.0); NEUTROPHILS # 2.9 10^3/uL (1.5-8.5); NEUTROPHILS % 56.2 % (36.0-66.0); PLATELET COUNT, AUTOMATED 235 10^3/uL (150-450); WHITE BLOOD COUNT 5.1 10^3/uL (4.0-10.0)
[2023-08-25 10:44] LABS: APPEARANCE, URINE CLEAR (CLEAR); BACTERIA, URINE AUTO NEGATIVE (NEGATIVE); BILIRUBIN, URINE AUTO NEGATIVE (NEGATIVE); BLOOD, URINE BLOOD NEGATIVE (NEGATIVE); COLOR, URINE YELLOW (YELLOW); GLUCOSE, URINE (UA) AUTO NEGATIVE (NEGATIVE); KETONE, URINE AUTO NEGATIVE (NEGATIVE); LEUKOCYTE ESTERASE, URINE AUTO 1+ (NEGATIVE); NITRITE, URINE AUTO NEGATIVE (NEGATIVE); PROTEIN, URINE AUTO NEGATIVE (NEGATIVE); RBC, URINE AUTO 0 /HPF (0-3); SPECIFIC GRAVITY URINE AUTO 1.009 (1.002-1.035); SQUAMOUS EPITHELIAL CELL UR AU 0 /HPF (0-6); UROBILINOGEN, URINE AUTO 0.2 mg/dL (0.0-2.0); WBC, URINE AUTO 1 /HPF (0-3)
[2023-08-25 11:14] LABS: ALBUMIN 3.8 G/DL (3.2-5.2); ALKALINE PHOSPHATASE 60 U/L (46-116); ALT/SGPT 35 U/L (7.0-40); AST/SGOT 35 U/L (<34); BILIRUBIN,TOTAL 1.4 MG/DL (0.3-1.2); BLOOD UREA NITROGEN 10 MG/DL (9-23); CALCIUM LEVEL 9.6 MG/DL (8.3-10.6); CARBON DIOXIDE LEVEL 32 MMOL/L (20-31); CHLORIDE LEVEL 101 MMOL/L (98-107); CHOLESTEROL LEVEL 196 MG/DL (<200); CHOLESTEROL RISK RATIO 3.39 (<5); FREE T4 0.94 NG/DL (0.89-1.76); GLOMERULAR FILTRATION RATE > 60.0 (>49); GLUCOSE, FASTING 98 MG/DL (74-106); HDL CHOLESTEROL 57.8 MG/DL (>40); NON-HDL-C 138.2 MG/DL; POTASSIUM SERUM 4.3 MMOL/L (3.5-5.1); SODIUM LEVEL 140 MMOL/L (136-145); THYROID STIMULATING HORMONE 3.252 uIU/ML (0.55-4.78); TOTAL PROTEIN 6.4 G/DL (5.7-8.2); TRIGLYCERIDES LEVEL 136 MG/DL (<150)
[2023-08-26 23:16] LABS: PSA TOTAL 2.3 ng/mL (0.0-4.0)
== END ==
LOC: M LAB 08:39
PROVIDERS: ATTEND Family Medicine
DX: E78.5 Hyperlipidemia, unspecified (principal)

== ENCOUNTER → 2024-02-14 | Outpatient (CLI) | payer OTHER ==
[2024-02-14 10:38] LABS: APPEARANCE, URINE CLEAR (CLEAR); BACTERIA, URINE AUTO NEGATIVE (NEGATIVE); BILIRUBIN, URINE AUTO NEGATIVE (NEGATIVE); BLOOD, URINE BLOOD NEGATIVE (NEGATIVE); COLOR, URINE YELLOW (YELLOW); GLUCOSE, URINE (UA) AUTO NEGATIVE (NEGATIVE); KETONE, URINE AUTO NEGATIVE (NEGATIVE); LEUKOCYTE ESTERASE, URINE AUTO 1+ (NEGATIVE); NITRITE, URINE AUTO NEGATIVE (NEGATIVE); PROTEIN, URINE AUTO NEGATIVE (NEGATIVE); RBC, URINE AUTO 0 /HPF (0-3); SPECIFIC GRAVITY URINE AUTO 1.008 (1.002-1.035); SQUAMOUS EPITHELIAL CELL UR AU 1 /HPF (0-6); UROBILINOGEN, URINE AUTO 0.2 mg/dL (0.0-2.0); WBC, URINE AUTO 3 /HPF (0-3)
[2024-02-14 10:39] LABS: BASO % 0.7 % (0.0-1.0); EOS # 0.1 10^3/uL (0.0-0.5); EOS % 2.2 % (0.0-3.0); HEMOGLOBIN 15.7 g/dl (13.5-17.5); LYMPH # 1.5 10^3/uL (1.5-5.0); LYMPH % 26.9 % (24.0-44.0); MEAN CORPUSCULAR HEMOGLOBIN 27.3 pg (27.0-33.0); MEAN CORPUSCULAR HGB CONC 33.4 g/dl (32.0-36.5); MEAN CORPUSCULAR VOLUME 81.7 fl (80.0-96.0); MONO # 0.5 10^3/uL (0.0-0.8); MONO % 9.8 % (2.0-8.0); NEUTROPHILS # 3.2 10^3/uL (1.5-8.5); NEUTROPHILS % 59.5 % (36.0-66.0); PLATELET COUNT, AUTOMATED 229 10^3/uL (150-450); RED BLOOD COUNT 5.75 10^6/uL (4.30-6.10); WHITE BLOOD COUNT 5.4 10^3/uL (4.0-10.0)
[2024-02-14 10:52] LABS: FREE T4 1.26 NG/DL (0.89-1.76); THYROID STIMULATING HORMONE 3.096 uIU/ML (0.55-4.78)
[2024-02-14 10:55] LABS: ALBUMIN 3.6 G/DL (3.2-5.2); ALKALINE PHOSPHATASE 59 U/L (46-116); ALT/SGPT 32 U/L (7.0-40); AST/SGOT 36 U/L (<34); BILIRUBIN,TOTAL 1.6 MG/DL (0.3-1.2); BLOOD UREA NITROGEN 9 MG/DL (9-23); CALCIUM LEVEL 9.7 MG/DL (8.3-10.6); CARBON DIOXIDE LEVEL 34 MMOL/L (20-31); CHLORIDE LEVEL 101 MMOL/L (98-107); CHOLESTEROL LEVEL 186 MG/DL (<200); CHOLESTEROL RISK RATIO 3.68 (<5); CREATININE FOR GFR 0.72 MG/DL (0.70-1.30); GLOMERULAR FILTRATION RATE > 60.0 (>49); GLUCOSE, FASTING 102 MG/DL (74-106); HDL CHOLESTEROL 50.5 MG/DL (>40); LDL CHOLESTEROL 103.5 MG/DL (<100); NON-HDL-C 135.5 MG/DL; POTASSIUM SERUM 3.7 MMOL/L (3.5-5.1); SODIUM LEVEL 141 MMOL/L (136-145); TOTAL PROTEIN 6.4 G/DL (5.7-8.2); TRIGLYCERIDES LEVEL 160 MG/DL (<150)
== END ==
LOC: M LAB 09:06
PROVIDERS: ATTEND Family Medicine
DX: Z00.01 Encounter for general adult medical examination with abnormal findings (principal); I10 Essential (primary) hypertension; E78.5 Hyperlipidemia, unspecified

== ENCOUNTER → 2024-03-08 | Outpatient (CLI) | payer OTHER | LOC: M SOG 07:58 | PROVIDERS: ATTEND Orthopaedic Surgery | DX: M54.50 Low back pain, unspecified (principal); M47.817 Spondylosis without myelopathy or radiculopathy, lumbosacral region ==

== ENCOUNTER → 2024-03-28 | Outpatient (CLI) | payer OTHER ==
[2024-03-28 19:01] LABS: FOLATE > 24.0 NG/ML (>5.4); THYROXINE (T4) 6.9 UG/DL (4.5-10.9); VITAMIN B12 LEVEL 402 PG/ML (211-911)
[2024-03-28 19:02] LABS: FREE THYROXINE INDEX 2.6 % (1.4-3.8); T UPTAKE 37.4 % (22.5-37.0)
[2024-03-28 19:03] LABS: THYROID STIMULATING HORMONE 2.967 uIU/ML (0.55-4.78)
[2024-03-28 19:31] LABS: HEMOGLOBIN A1c 5.4 % (4.0-6.0)
[2024-03-30 07:38] LABS: T P ELECTROPHORESIS SO 7.4 g/dL (6.1-8.1)
[2024-03-31 23:27] LABS: SSA SJOGRENS A <1.0 NEG AI (<1.0 NEG); SSB SJOGRENS B <1.0 NEG AI (<1.0 NEG)
[2024-04-02 23:43] LABS: VITAMIN E(ALPHA TOCOPHEROL) 12.5 mg/L (5.7-19.9); VITAMIN E(GAMMA TOCOPHEROL) 1.5 mg/L (<=4.3)
[2024-04-03 07:52] LABS: ALBUMIN SPEP 4.7 g/dL (3.8-4.8); ALPHA-1-GLOBULINS SO 0.3 g/dL (0.2-0.3); ALPHA-2-GLOBULINS SO 0.8 g/dL (0.5-0.9); BETA 2 GLOBULIN 0.4 g/dL (0.2-0.5); BETA-GLOBULIN SO 0.5 g/dL (0.4-0.6); GAMMA GLOBULINS SO 0.7 g/dL (0.8-1.7)
[2024-04-04 07:57] LABS: VITAMIN B1 LEVEL WHOLE BLOOD 142 nmol/L (78-185)
[2024-04-05 08:37] LABS: VITAMIN B6,PYRIDOXAL PHOSPHATE 33.7 ng/mL (2.1-21.7)
== END ==
LOC: M PLALAB 14:53
PROVIDERS: ATTEND Psychiatry & Neurology Neurology
DX: G62.9 Polyneuropathy, unspecified (principal); E11.9 Type 2 diabetes mellitus without complications; E07.9 Disorder of thyroid, unspecified; E53.8 Deficiency of other specified B group vitamins; M35.00 Sjogren syndrome, unspecified

== ENCOUNTER → 2024-04-10 | Outpatient (CLI) | payer OTHER | LOC: M RAD 12:38 | PROVIDERS: ATTEND Orthopaedic Surgery | DX: G57.93 Unspecified mononeuropathy of bilateral lower limbs (principal) ==

== ENCOUNTER → 2024-04-15 | Outpatient (CLI) | payer OTHER | LOC: M RAD 12:45 | PROVIDERS: ATTEND Orthopaedic Surgery | DX: G57.93 Unspecified mononeuropathy of bilateral lower limbs (principal); M47.816 Spondylosis without myelopathy or radiculopathy, lumbar region; M48.061 Spinal stenosis, lumbar region without neurogenic claudication; M47.817 Spondylosis without myelopathy or radiculopathy, lumbosacral region; M48.07 Spinal stenosis, lumbosacral region; M51.46 Schmorl's nodes, lumbar region ==

== ENCOUNTER 2024-06-13 11:07 | Emergency (ER) | payer OTHER ==
[~2024-06-13] VITALS: Ht 177.8 cm; Wt 121.8 kg
[2024-06-13 14:29] VITALS: BP 143/83; TEMP 97.9; O2SAT 95
== END 2024-06-13 15:55 | disposition home or self-care (01) ==
LOC: M ED 11:07
DX: M79.672 Pain in left foot (principal); W00.0XXA Fall on same level due to ice and snow, initial encounter; Y92.410 Unspecified street and highway as the place of occurrence of the external cause; Y93.89 Activity, other specified; Y99.9 Unspecified external cause status; I10 Essential (primary) hypertension; E78.5 Hyperlipidemia, unspecified; Z79.899 Other long term (current) drug therapy

== ENCOUNTER → 2024-06-22 | Outpatient (CLI) | payer OTHER ==
[2024-06-22 15:50] LABS: HEMOGLOBIN 15.5 g/dl (13.5-17.5); MEAN CORPUSCULAR HEMOGLOBIN 26.8 pg (27.0-33.0); MEAN CORPUSCULAR VOLUME 81.3 fl (80.0-96.0); PLATELET COUNT, AUTOMATED 271 10^3/uL (150-450); RED BLOOD COUNT 5.78 10^6/uL (4.30-6.10); WHITE BLOOD COUNT 5.4 10^3/uL (4.0-10.0)
[2024-06-22 15:55] LABS: ERYTHROCYTE SEDIMENTATION RATE 28 mm/hr (0-20)
[2024-06-22 16:17] LABS: ALBUMIN 3.7 G/DL (3.2-5.2); ALKALINE PHOSPHATASE 60 U/L (40-129); ALT/SGPT 25 U/L (7.0-40); AST/SGOT 38 U/L (<34); BILIRUBIN,TOTAL 1.8 MG/DL (0.3-1.2); BLOOD UREA NITROGEN 10 MG/DL (9-23); C REACTIVE PROTEIN QUANTITATIV 1.16 MG/DL (<1.0); CALCIUM LEVEL 10.4 MG/DL (8.3-10.6); CARBON DIOXIDE LEVEL 28 MMOL/L (20-31); CHLORIDE LEVEL 100 MMOL/L (98-107); CREATININE FOR GFR 0.78 MG/DL (0.70-1.30); GLOMERULAR FILTRATION RATE > 60.0 (>49); GLUCOSE, FASTING 99 MG/DL (74-106); POTASSIUM SERUM 4.1 MMOL/L (3.5-5.1); SODIUM LEVEL 139 MMOL/L (136-145); TOTAL PROTEIN 7.1 G/DL (5.7-8.2)
[2024-06-22 16:18] LABS: RHEUMATOID FACTOR QUANT 6.6 IU/ML (<14)
[2024-06-22 16:26] LABS: URIC ACID 10.1 MG/DL (3.7-9.2)
[2024-06-26 17:26] LABS: ANA SCREEN, IFA NEGATIVE (NEGATIVE)
[2024-06-27 00:07] LABS: CYCLIC CITRULLINATED PEPTIDE < 16 UNITS (<20)
== END ==
LOC: M LAB 15:15
PROVIDERS: ATTEND Physician Assistant
DX: M25.572 Pain in left ankle and joints of left foot (principal); Z82.69 Family history of other diseases of the musculoskeletal system and connective tissue

== ENCOUNTER → 2024-07-06 | Outpatient (CLI) | payer OTHER | LOC: M PLARAD 13:02 | PROVIDERS: ATTEND Physician Assistant | DX: M25.572 Pain in left ankle and joints of left foot (principal); M19.072 Primary osteoarthritis, left ankle and foot; M25.472 Effusion, left ankle ==

== ENCOUNTER → 2024-07-31 | Outpatient (RCR) | payer OTHER | LOC: M PT 07-27 13:11 | PROVIDERS: ATTEND Physician Assistant | DX: M25.572 Pain in left ankle and joints of left foot (principal) ==

== ENCOUNTER → 2024-08-25 | Outpatient (CLI) | payer OTHER ==
[2024-08-25 08:51] LABS: BASO # 0.1 10^3/uL (0.0-0.2); BASO % 0.9 % (0.0-1.0); EOS # 0.1 10^3/uL (0.0-0.5); EOS % 2.1 % (0.0-3.0); HEMATOCRIT 49.2 % (42.0-52.0); HEMOGLOBIN 15.7 g/dl (13.5-17.5); LYMPH # 1.7 10^3/uL (1.5-5.0); LYMPH % 30.4 % (24.0-44.0); MEAN CORPUSCULAR HEMOGLOBIN 25.9 pg (27.0-33.0); MEAN CORPUSCULAR HGB CONC 31.9 g/dl (32.0-36.5); MEAN CORPUSCULAR VOLUME 81.2 fl (80.0-96.0); MONO # 0.4 10^3/uL (0.0-0.8); MONO % 7.9 % (2.0-8.0); NEUTROPHILS # 3.3 10^3/uL (1.5-8.5); PLATELET COUNT, AUTOMATED 256 10^3/uL (150-450); RED BLOOD COUNT 6.06 10^6/uL (4.30-6.10); WHITE BLOOD COUNT 5.6 10^3/uL (4.0-10.0)
[2024-08-25 09:23] LABS: ALBUMIN 3.7 G/DL (3.2-5.2); ALKALINE PHOSPHATASE 60 U/L (40-129); ALT/SGPT 25 U/L (7.0-40); AST/SGOT 30 U/L (<34); BILIRUBIN,TOTAL 1.7 MG/DL (0.3-1.2); BLOOD UREA NITROGEN 10 MG/DL (9-23); CALCIUM LEVEL 9.1 MG/DL (8.3-10.6); CARBON DIOXIDE LEVEL 34 MMOL/L (20-31); CHLORIDE LEVEL 98 MMOL/L (98-107); CHOLESTEROL LEVEL 175 MG/DL (<200); CREATININE FOR GFR 0.72 MG/DL (0.70-1.30); FREE T4 1.04 NG/DL (0.89-1.76); GLOMERULAR FILTRATION RATE > 90.0 (>49); GLUCOSE, FASTING 102 MG/DL (74-106); HDL CHOLESTEROL 58.3 MG/DL (>40); LDL CHOLESTEROL 88.7 MG/DL (<100); NON-HDL-C 116.7 MG/DL; POTASSIUM SERUM 3.1 MMOL/L (3.5-5.1); SODIUM LEVEL 138 MMOL/L (136-145); THYROID STIMULATING HORMONE 3.265 uIU/ML (0.55-4.78); TOTAL PROTEIN 6.6 G/DL (5.7-8.2); TRIGLYCERIDES LEVEL 140 MG/DL (<150); URIC ACID 9.3 MG/DL (3.7-9.2)
[2024-08-28 12:23] LABS: PSA FREE 1.3 ng/mL; PSA TOTAL 4.8 ng/mL (< OR = 4.0)
== END ==
LOC: M LAB 07:59
PROVIDERS: ATTEND Family Medicine
DX: I10 Essential (primary) hypertension (principal); E79.0 Hyperuricemia without signs of inflammatory arthritis and tophaceous disease; E78.5 Hyperlipidemia, unspecified

== ENCOUNTER → 2024-09-01 | Outpatient (CLI) | payer OTHER ==
[2024-09-01 12:38] LABS: MAGNESIUM LEVEL 1.8 MG/DL (1.8-2.4); POTASSIUM SERUM 3.5 MMOL/L (3.5-5.1)
== END ==
LOC: M LAB 11:04
PROVIDERS: ATTEND Family Medicine
DX: E87.6 Hypokalemia (principal)

== ENCOUNTER 2025-01-29 14:38 | Inpatient (IN) | payer OTHER ==
[~2025-01-29] VITALS: Ht 177.8 cm; Wt 111.4 kg
[~2025-01-29 14:38] MED LIST changes: +CEPH500T PO; -IBUP-1022 PO; +IBUP600T42 PO
[2025-01-29 15:17] LABS: BASO # 0.0 10^3/uL (0.0-0.2); BASO % 0.4 % (0.0-1.0); EOS # 0.0 10^3/uL (0.0-0.5); EOS % 0.5 % (0.0-3.0); LYMPH # 1.0 10^3/uL (1.5-5.0); LYMPH % 11.6 % (24.0-44.0); MONO # 1.1 10^3/uL (0.0-0.8); MONO % 12.7 % (2.0-8.0); NEUTROPHILS # 6.2 10^3/uL (1.5-8.5); NEUTROPHILS % 74.3 % (36.0-66.0); PLATELET COUNT, AUTOMATED 275 10^3/uL (150-450)
[2025-01-29 15:26] LABS: ERYTHROCYTE SEDIMENTATION RATE 59 mm/hr (0-20)
[2025-01-29 15:33] LABS: INR 1.0
[2025-01-29 15:42] LABS: ALT/SGPT 42 U/L (7.0-40); AST/SGOT 53 U/L (<34); CALCIUM LEVEL 9.2 MG/DL (8.3-10.6); CARBON DIOXIDE LEVEL 32 MMOL/L (20-31); CHLORIDE LEVEL 89 MMOL/L (98-107); CREATININE FOR GFR 0.73 MG/DL (0.70-1.30); GLOMERULAR FILTRATION RATE > 90.0 (>49); POTASSIUM SERUM 3.2 MMOL/L (3.5-5.1); SODIUM LEVEL 130 MMOL/L (136-145)
[2025-01-29 15:52] LABS: C REACTIVE PROTEIN QUANTITATIV 23.19 MG/DL (<1.0)
[2025-01-29] MEDS: GABAPENTIN 300 MG CAP PO SCH (21:00)
[2025-01-29] MEDS: SIMVASTATIN 20 MG TAB PO SCH (21:00)
[2025-01-29] MEDS: POTASSIUM CHLORIDE 10MEQ SR TABLET PO ONE (21:32)
[2025-01-29 22:20] VITALS: O2SAT 94
[2025-01-29] MEDS: KETOROLAC 30 MG/ML 1 ML VIAL IV ONE (22:25)
[2025-01-29] MEDS ORDERED: THERTAB52 PO (23:17)
[2025-01-29] MEDS ORDERED: GABA-1172 PO (23:29)
[2025-01-29] MEDS ORDERED: CHOL25TA9 PO (23:29)
[2025-01-29] MEDS ORDERED: HOME MED LIST COMPLETE! XX SCH (23:30)
[2025-01-29] MEDS ORDERED: MAALOX 30 ML SUSP *UDC PO PRN (23:30)
[2025-01-29] MEDS ORDERED: ACETAMINOPHEN 325 MG TAB PO PRN (23:30)
[2025-01-29] MEDS ORDERED: MOM 30 ML SUSPENSION UDC PO PRN (23:30)
[2025-01-30 01:04] LABS: OSMOLALITY SERUM 278 MOSM/KG (280-301)
[2025-01-30] MEDS ORDERED: ISOVUE-370 76% 100 ML VIAL As Ordered ONE (01:27)
[2025-01-30 04:00] VITALS: TEMP 98.6
[2025-01-30 06:00] VITALS: BP 109/65; O2SAT 96
[2025-01-30] MEDS: ENOXAPARIN 40 MG/0.4 ML SYRINGE (J1650 PER 10MG) SC SCH (07:52)
[2025-01-30 08:30] VITALS: BP 117/67
[2025-01-30] MEDS: TRIAMTERENE/hydroCHLOROthiazide 37.5/25 MG CAPSULE PO SCH (08:30)
[2025-01-30 10:03] LABS: PLATELET COUNT, AUTOMATED 269 10^3/uL (150-450)
[2025-01-30 11:16] LABS: HEPATITIS C VIRUS ABY INDEX 0.03 INDEX (<0.8)
[2025-01-30 11:18] LABS: ALT/SGPT 34 U/L (7.0-40); AST/SGOT 42 U/L (<34); CALCIUM LEVEL 8.7 MG/DL (8.3-10.6); CARBON DIOXIDE LEVEL 31 MMOL/L (20-31); CHLORIDE LEVEL 94 MMOL/L (98-107); CREATININE FOR GFR 0.96 MG/DL (0.70-1.30); GLOMERULAR FILTRATION RATE 89.4 (>49); MAGNESIUM LEVEL 2.1 MG/DL (1.8-2.4); POTASSIUM SERUM 3.5 MMOL/L (3.5-5.1); SODIUM LEVEL 135 MMOL/L (136-145)
[2025-01-30] MEDS ORDERED: DOXY-440 PO (12:22)
[2025-01-30] MEDS ORDERED: AUGM500T34 PO (12:22)
[2025-01-30] MEDS ORDERED: AMOX875T2 PO (12:28)
== END 2025-01-30 14:11 | disposition home or self-care (01) | DRG 351 ==
LOC: M ED 14:38 → M ED INP 23:26
PROVIDERS: ADMIT Student in an Organized Health Care Education/Training Program; ATTEND Internal Medicine
DX: S93.402A Sprain of unspecified ligament of left ankle, initial encounter (principal); I27.20 Pulmonary hypertension, unspecified; I11.0 Hypertensive heart disease with heart failure; E87.1 Hypo-osmolality and hyponatremia; R17 Unspecified jaundice; I50.30 Unspecified diastolic (congestive) heart failure; G62.9 Polyneuropathy, unspecified; E03.9 Hypothyroidism, unspecified; E78.5 Hyperlipidemia, unspecified; J44.9 Chronic obstructive pulmonary disease, unspecified; E87.6 Hypokalemia; I44.0 Atrioventricular block, first degree; M71.22 Synovial cyst of popliteal space [Baker], left knee; Z96.641 Presence of right artificial hip joint; Z79.899 Other long term (current) drug therapy; M19.90 Unspecified osteoarthritis, unspecified site; W18.41XA Slipping, tripping and stumbling without falling due to stepping on object, initial encounter; Y92.009 Unspecified place in unspecified non-institutional (private) residence as the place of occurrence of the external cause

== ENCOUNTER 2025-02-02 12:00 | Emergency (ER) | payer OTHER ==
[~2025-02-02] VITALS: Ht 177.8 cm; Wt 113.6 kg
[~2025-02-02 12:00] MED LIST changes: +AMOX875T2 PO; +AUGM500T34 PO; +CHOL25TA9 PO; +DOXY-440 PO; +GABA-1172 PO; +THERTAB52 PO
[2025-02-02 13:24] LABS: BASO # 0.1 10^3/uL (0.0-0.2); BASO % 0.8 % (0.0-1.0); EOS # 0.1 10^3/uL (0.0-0.5); EOS % 1.7 % (0.0-3.0); LYMPH # 1.4 10^3/uL (1.5-5.0); LYMPH % 20.9 % (24.0-44.0); MONO # 0.8 10^3/uL (0.0-0.8); MONO % 12.0 % (2.0-8.0); NEUTROPHILS # 4.2 10^3/uL (1.5-8.5); NEUTROPHILS % 63.4 % (36.0-66.0); PLATELET COUNT, AUTOMATED 332 10^3/uL (150-450)
[2025-02-02 13:30] LABS: ERYTHROCYTE SEDIMENTATION RATE 54 mm/hr (0-20)
[2025-02-02 13:42] LABS: ALT/SGPT 40 U/L (7.0-40); AST/SGOT 52 U/L (<34); C REACTIVE PROTEIN QUANTITATIV 6.31 MG/DL (<1.0); CALCIUM LEVEL 9.0 MG/DL (8.3-10.6); CARBON DIOXIDE LEVEL 33 MMOL/L (20-31); CHLORIDE LEVEL 96 MMOL/L (98-107); CREATININE FOR GFR 0.67 MG/DL (0.70-1.30); GLOMERULAR FILTRATION RATE > 90.0 (>49); POTASSIUM SERUM 3.6 MMOL/L (3.5-5.1); SODIUM LEVEL 138 MMOL/L (136-145)
[2025-02-02] MEDS: PERCOCET 5MG/325MG TAB PO ONE (14:58)
[2025-02-02] MEDS ORDERED: ACETAMINOPHEN 325 MG TAB PO PRN (18:35)
[2025-02-02] MEDS ORDERED: AMOX875T2 PO (20:19)
[2025-02-02] MEDS ORDERED: DOXY-441 PO (20:19)
[2025-02-02] MEDS ORDERED: FLUT50SP33 (20:19)
[2025-02-02] MEDS ORDERED: HOME MED LIST COMPLETE! XX SCH (20:20)
[2025-02-02] MEDS: AUGMENTIN 875 MG TAB PO SCH (21:26)
[2025-02-02] MEDS: DOCUSATE SODIUM 100 MG CAPSULE PO SCH (21:26)
[2025-02-02] MEDS: DOXYCYCLINE HYCLATE 100 MG TABLET PO SCH (21:26)
[2025-02-02] MEDS: GABAPENTIN 300 MG CAP PO SCH (21:26)
[2025-02-03] MEDS: ENOXAPARIN 40 MG/0.4 ML SYRINGE (J1650 PER 10MG) SC SCH (07:46)
[2025-02-03] MEDS ORDERED: MIRALAX *UNIT DOSE* 17 GM PACKET PO PRN (12:00)
[2025-02-03] MEDS ORDERED: FLUTICASONE PROPIONATE 0.05% NASAL SPRAY 16 GM NARES PRN (12:00)
[2025-02-03] MEDS: GABAPENTIN 300 MG CAP PO SCH (16:31)
[2025-02-03] MEDS: AUGMENTIN 875 MG TAB PO SCH (20:49)
[2025-02-03] MEDS: DOXYCYCLINE HYCLATE 100 MG TABLET PO SCH (20:50)
[2025-02-03] MEDS: SENNOSIDES/DOCUSATE SODIUM 8.6 MG/50MG TAB PO SCH (20:50)
[2025-02-03] MEDS: VITAMIN D 1,000 INTERNATIONAL UNITS TABLET PO SCH (20:50)
[2025-02-03] MEDS: SIMVASTATIN 20 MG TAB PO SCH (20:51)
[2025-02-04] MEDS ORDERED: OXYC-517 PO (08:47)
[2025-02-04] MEDS ORDERED: DOCU8.6T PO (08:47)
[2025-02-04 10:30] VITALS: BP 140/60; TEMP 98.2; O2SAT 96
== END 2025-02-04 10:32 | disposition home or self-care (01) ==
LOC: EDBD 12:00 → M ED 12:00
DX: L03.116 Cellulitis of left lower limb (principal); R60.0 Localized edema; I44.0 Atrioventricular block, first degree; I10 Essential (primary) hypertension; E03.9 Hypothyroidism, unspecified; K21.9 Gastro-esophageal reflux disease without esophagitis; F32.9 Major depressive disorder, single episode, unspecified; G47.33 Obstructive sleep apnea (adult) (pediatric); Z86.718 Personal history of other venous thrombosis and embolism; Z79.2 Long term (current) use of antibiotics; Z79.899 Other long term (current) drug therapy
CPT/HCPCS: 36415; 73610; 73630; 80048; 80076; 83605; 84145; 85025; 85652; 86140; 87040; 93041; 93971; 94760; 97116; 97161; 97162; 97530; 99285; J1650

== ENCOUNTER → 2025-03-01 | Outpatient (CLI) | payer OTHER ==
[~2025-03-01] MED LIST changes: +DOCU8.6T PO; +DOXY-441 PO; +FLUT50SP33; +OXYC-517 PO
== END ==
LOC: M RAD 13:07
PROVIDERS: ATTEND Family Medicine
DX: M71.22 Synovial cyst of popliteal space [Baker], left knee (principal)

== ENCOUNTER → 2025-03-08 | Outpatient (CLI) | payer OTHER ==
[2025-03-08 11:10] LABS: BASO # 0.1 10^3/uL (0.0-0.2); BASO % 1.0 % (0.0-1.0); EOS # 0.1 10^3/uL (0.0-0.5); EOS % 1.0 % (0.0-3.0); LYMPH # 1.1 10^3/uL (1.5-5.0); LYMPH % 19.2 % (24.0-44.0); MONO # 0.5 10^3/uL (0.0-0.8); MONO % 9.2 % (2.0-8.0); NEUTROPHILS # 3.9 10^3/uL (1.5-8.5); NEUTROPHILS % 68.9 % (36.0-66.0); PLATELET COUNT, AUTOMATED 255 10^3/uL (150-450)
[2025-03-08 11:46] LABS: ALT/SGPT 21 U/L (7.0-40); AST/SGOT 35 U/L (<34); CALCIUM LEVEL 9.2 MG/DL (8.3-10.6); CARBON DIOXIDE LEVEL 28 MMOL/L (20-31); CHLORIDE LEVEL 101 MMOL/L (98-107); CHOLESTEROL LEVEL 173 MG/DL (<200); CHOLESTEROL RISK RATIO 2.92 (<5); CREATININE FOR GFR 0.75 MG/DL (0.70-1.30); GLOMERULAR FILTRATION RATE > 90.0 (>49); LDL CHOLESTEROL 86.5 MG/DL (<100); NON-HDL-C 113.9 MG/DL; POTASSIUM SERUM 4.0 MMOL/L (3.5-5.1); SODIUM LEVEL 139 MMOL/L (136-145); TRIGLYCERIDES LEVEL 137 MG/DL (<150)
[2025-03-08 11:52] LABS: FREE T4 1.19 NG/DL (0.89-1.76)
[2025-03-12 15:07] LABS: PSA % FREE 24.0 % (calc) (>25); PSA FREE 1.0 ng/mL; PSA TOTAL 4.2 ng/mL (< OR = 4.0)
== END ==
LOC: M LAB 10:21
PROVIDERS: ATTEND Family Medicine
DX: I10 Essential (primary) hypertension (principal); E78.5 Hyperlipidemia, unspecified; M10.00 Idiopathic gout, unspecified site; R97.20 Elevated prostate specific antigen [PSA]